=== PATIENT | female | born 1995 | race American Indian/Alaskan Native ===

== ENCOUNTER 2019-07-10 18:26 | Inpatient (IN) | payer BC, OTHER ==
--- NOTE | 2019-07-10 18:32 | History and Physical Report ---
History of Present Illness Date of examination: 07/10/19 (Sent from [facility] for IOL due to PreE) Date of admission: 07/10/19 History of present illness: EDC Confirmation: 07/22/2019 Gestational Age: 21 4/7 weeks Past History : 2 Term Births: 0 Premature Births: 0 Living Children: 0 Para: 0 Mult. Births: 0 Prev : 0 Prev. attempt? 0 Aborta: 1 Elect. Ab: 1 Spont. Ab: 0 Ectopics: 0 # 1 Delivery date: 10/2016 Delivery type: EAB Past Medical History: Endometriosis Past Surgical History: negative Past Medical History Anesthesia Complications: negative Anemia: negative Autoimmune Disorder: negative Bleeding Disorder: negative Blood Transfusions: negative Breast Disease: negative Diabetes: negative Heart Disease: negative Hypertension: negative Hepatitis/Liver Disease: negative Kidney Disease/UTI: negative Neurologic/Epilepsy/Migraines: negative Phlebitis/Varicosities: negative Psychiatric: negative Pulmonary Disease/Asthma: negative Thyroid Disease: negative Hospitalizations: negative Surgery (Non-skin therapist): negative Abnormal PAP: negative Social Hx: Single no smoking/drugs/ETOH Infection History Hx of STD: none HIV Risk Eval: low risk Hepatitis B Risk Eval: low risk Personal hx. of genital herpes: no Partner hx. of genital herpes: no Rash, Viral, or Febrile illness since last LMP? no Varicella/Chicken Pox Status: Immunized Genetic History Congenital Heart Defect: Mom: no Dad: no Bing Disease: Mom: no Dad: no Thalassemia Mom: no Dad: no Neural Tube Defect Mom: no Dad: no Down's Syndrome Mom: no Dad: no Steven-Sachs Mom: no Dad: no Sickle Cell Disease/Trait Mom: no Dad: no Hemophilia Mom: no Dad: no Muscular Dystrophy Mom: no Dad: no Cystic Fibrosis Mom: no Dad: no [place] Chorea Mom: no Dad: no Mental Retardation Mom: no Dad: no Fragile X Mom: no Dad: no Other Genetic/Chromosomal Disorder Mom: no Dad: no Child w/other defect Mom: no Dad: no Enviromental Exposures Xray Exposure: no Medication, drug, or alcohol use since LMP: no Chemical/Other Exposure: no Exposure to Cat Liter: no Hx of Parvovirus (Fifth Disease): no Active Medications (reviewed today): PNV () Current Allergies (reviewed today): No known allergies Past History - Obstetrical History Expected Date of Delivery: 07/22/19 Actual Gestation: 38 Week(s) 2 Day(s) : 2 Para: 0 Hx # Term Pregnancies: 0 Number of Pregnancies: 0 Spontaneous Abortions: 0 Induced : 1 Number of Living Children: 0 Medications and Allergies Allergies Allergy/AdvReac Type Severity Reaction Status Date / Time No Known Allergies Allergy Unverified 03/28/14 10:06 - Physical Exam Breasts: Positive: deferred Cardiovascular: Regular rate, Normal S1, Normal S2 Lungs: Positive: Clear to auscultation Abdomen: Positive: normal appearance, soft, normal bowel sounds. Negative: distention, tenderness Genitourinary (Female): Positive: normal external genitalia Vulva: both: normal Vagina: Positive: normal moisture. Negative: discharge Cervix: Negative: lesion, discharge Uterus: Positive: normal size, normal contour Adnexa: both: normal Anus/Rectum: Positive: normal perianal skin, heme negative. Negative: rectal mass, hemorrhoids Extremities: Positive: edema (minimal LE) Deep Tendon Reflex Grade: Normal +2 - Obstetrical FHR: category 1 Uterine Contraction Monitor Mode: External Cervical Dilatation: 0.5 Cervical Effacement Percentage: 80 station: -3 Uterine Contraction Pattern: Irregular Uterine Tone Measurement Phase: Resting Uterine Contraction Intensity: Mild Results Result Diagrams: 07/10/19 18:58 All other labs normal. GBS Negative Current OB Labs Blood Type: A (12/25/2018) Rh Type: positive (12/25/2018) Rh Antibody Screen: negative (12/25/2018) Hgb: 12.1 (12/25/2018) Hct: 35.3 (12/25/2018) Platelets: 199 (12/25/2018) Rubella: immune (12/25/2018) RPR: nonreactive (12/25/2018) Hep B Surface Antigen: negative (12/25/2018) HIV: negative (12/25/2018) Urine Culture: Neg (12/25/2018) 1 Hour GTT: 90 (12/25/2018) Assessment and Plan 23yo @ 38 weeks for IOL due to PreE Sent from [facility] office with their recommendation to move forward with induction. All orders in EMR GBS negative. - Patient Problems (1) Marijuana use Onset Date: ~07/10/19 Current Visit: Yes Status: Acute Plan to address problem: UDS ordered Pt denies any recent use (2) Pre-eclampsia Onset Date: ~07/10/19 Current Visit: Yes Status: Acute Qualifiers: Trimester: third trimester Qualified Code(s): O14.93 - Unspecified pre- eclampsia, third trimester Plan to address problem: BP has been in the 130/90-80 over the last 2 visits for PN care. It was 140/90 today @ [facility] IOL orders in EMR aware of admission Will start MGSO4 per protocol. Cervidil for IOL (3) Proteinuria affecting in third trimester Onset Date: ~07/10/19 Current Visit: Yes Status: Acute Plan to address problem: 24hr urine TP 529 on 07-01-19 Will closely follow urine output IOL today as per [facility] recommendation
[2019-07-10] MEDS ORDERED: ePHEDrine SULFATE 50 MG/1 ML INJ IV PRN (18:33)
[2019-07-10] MEDS ORDERED: LIDOCAINE (2%) 20 MG/1 ML VIAL 20 ML MDV INFILTRATI ONE (18:33)
[2019-07-10] MEDS ORDERED: MINERAL OIL 30 ML ORAL LIQD PO PRN (18:33)
[2019-07-10] MEDS ORDERED: TERBUTALINE 1 MG/1 ML INJ SUB-Q PRN (18:33)
[2019-07-10] MEDS ORDERED: ONDANSETRON 4 MG/2 ML INJ IV PRN (18:33)
[2019-07-10] MEDS ORDERED: MAGNESIUM SULFATE 4 GM/100 ML BAG IV ONE (18:42)
[2019-07-10] MEDS ORDERED: DINOPROSTONE 10 MG VAG SUPP VG ONE (19:00)
[2019-07-10] MEDS ORDERED: LACTATED RINGERS 1,000 ML IV SCH (19:00)
[2019-07-10] MEDS ORDERED: OXYTOCIN 20 UNIT/1000ML DRIP 20 UNITS/1,000 ML BAG IV SCH (19:00)
[2019-07-10 19:32] LABS: Hematocrit 36.4 % (30.3-42.9); Hemoglobin 12.4 gm/dl (10.1-14.3); Mean Corpuscular HGB Conc 34 % (30-34); Mean Corpuscular Volume 93 fl (79-97); Platelet Count 191 K/mm3 (140-440); Red Blood Count 3.92 M/mm3 (3.65-5.03); Red Cell Distribution Width 13.8 % (13.2-15.2)
[2019-07-10] MEDS ORDERED: ZOLPIDEM 10 MG TAB PO PRN (19:38)
[2019-07-10 19:48] LABS: Alanine Aminotransferase 8 units/L (7-56); Albumin 3.1 g/dL (3.9-5); BUN/Creatinine Ratio 15; Blood Urea Nitrogen 9 mg/dL (7-17); Calcium 8.9 mg/dL (8.4-10.2); Hemolysis Index 41
[2019-07-10 19:59] LABS: Bilirubin,Direct < 0.2 mg/dL (0-0.2)
[2019-07-10 20:00] LABS: INR 0.99 (0.87-1.13); Partial Thromboplastin Time 27.3 Sec. (24.2-36.6)
[2019-07-10] MEDS: LACTATED RINGERS 1,000 ML IV SCH (21:21)
[2019-07-10] MEDS: MAGNESIUM SULFATE 40GM/1000ML 40 GM/1,000 ML BAG IV SCH (21:35)
[2019-07-10 22:51] LABS: Amphetamine Screen,Urine PRESUMPTIVE NEGATIVE; Bacteria,Urine 1+ /HPF (Negative); Benzodiazepines Screen,Urine PRESUMPTIVE NEGATIVE; Bilirubin,Urine NEG (Negative); Blood,Urine NEG (Negative); Cocaine Screen,Urine PRESUMPTIVE NEGATIVE; Color,Urine Yellow (Yellow); Methadone Screen,Urine PRESUMPTIVE NEGATIVE; Mucus,Urine FEW /HPF; Opiate Screen,Urine PRESUMPTIVE NEGATIVE; RBC,Urine < 1.0 /HPF (0.0-6.0); Urobilinogen,Urine < 2.0 mg/dL (<2.0); WBC,Urine < 1.0 /HPF (0.0-6.0)
[2019-07-10 23:17] LABS: Cannabinoid Screen,Urine PRESUMPTIVE POSITIVE
[2019-07-11] MEDS ORDERED: ACETAMINOPHEN 325 MG TAB PO ONE ×2 (05:05→11:00)
--- NOTE | 2019-07-11 07:48 | Progress Note ---
Assessment and Plan patient sleeping, easily aroused to verbal stimuli. reports GUPTA has improved but still present 12/26. refuses additional medication for GUPTA. Output adequate, unsure of balance as no intake documented. b/p mostly normotensive, elevated b/p x1 (148/90) noted since midnight. Last mag level 4.2. reviewed plan with patient, all questions addressed. will reevaluate PRN. - Patient Problems (1) 38 weeks gestation of Current Visit: Yes Status: Acute (2) Pre-eclampsia Onset Date: ~07/10/19 Current Visit: Yes Status: Acute Qualifiers: Trimester: third trimester Qualified Code(s): O14.93 - Unspecified pre- eclampsia, third trimester Plan to address problem: Mag sulfate @ 2gm Mag levels q6hrs IOL; cervidil to be removed @ 0930, will start pitocin 30 minutes after removal. Monitor for s/s worsening pre-e strict I&O Subjective - Subjective Date of service: 07/11/19 Principal diagnosis: IUP @ 38+ weeks, IOL for pre-e Patient reports: movement normal, other (GUPTA 12/26 - declines medication), no loss of fluid, no vaginal bleeding, no contractions Objective - Vital Signs Vital Signs: Vital Signs - 12hr 07/10/19 07/10/19 07/10/19 19:45 19:50 19:53 Temperature Pulse Rate 88 104 H 100 H Respiratory Rate Blood Pressure 158/106 O2 Sat by Pulse 98 98 Oximetry 07/10/19 07/10/19 07/10/19 19:55 20:00 20:05 Temperature Pulse Rate 84 98 H 87 Respiratory Rate Blood Pressure O2 Sat by Pulse 98 99 99 Oximetry 07/10/19 07/10/19 07/10/19 20:10 20:15 20:21 Temperature Pulse Rate 86 92 H 89 Respiratory Rate Blood Pressure 133/86 O2 Sat by Pulse 98 98 99 Oximetry 07/10/19 07/10/19 07/10/19 20:26 20:31 20:36 Temperature Pulse Rate 96 H 82 91 H Respiratory Rate Blood Pressure O2 Sat by Pulse 98 99 99 Oximetry 07/10/19 07/10/19 07/10/19 20:41 20:46 20:51 Temperature Pulse Rate 86 87 86 Respiratory Rate Blood Pressure O2 Sat by Pulse 98 100 100 Oximetry 07/10/19 07/10/1907/10/19 20:56 21:01 21:06 Temperature Pulse Rate 88 94 H 92 H Respiratory Rate Blood Pressure O2 Sat by Pulse 100 99 100 Oximetry 07/10/19 07/10/19 07/10/19 21:11 21:14 21:16 Temperature Pulse Rate 91 H 83 91 H Respiratory Rate Blood Pressure 131/84 O2 Sat by Pulse 100 99 Oximetry 07/10/19 07/10/19 07/10/19 21:19 21:21 21:25 Temperature Pulse Rate 90 88 94 H Respiratory Rate Blood Pressure 139/88 128/79 O2 Sat by Pulse 100 Oximetry 07/10/19 07/10/19 07/10/19 21:26 21:29 21:31 Temperature Pulse Rate 86 101 H 78 Respiratory Rate Blood Pressure 131/84 O2 Sat by Pulse 99 100 Oximetry 07/10/19 07/10/19 07/10/19 21:34 21:36 21:41 Temperature Pulse Rate 82 88 99 H Respiratory Rate Blood Pressure 130/81 O2 Sat by Pulse 99 99 Oximetry 07/10/19 07/10/19 07/10/19 21:46 21:51 21:56 Temperature Pulse Rate 94 H 90 104 H Respiratory Rate Blood Pressure O2 Sat by Pulse 99 99 98 Oximetry 07/10/19 07/10/19 07/10/19 22:01 22:06 22:11 Temperature Pulse Rate 101 H 105 H 102 H Respiratory Rate Blood Pressure O2 Sat by Pulse 98 98 98 Oximetry 07/10/19 07/10/19 07/10/19 22:16 22:21 22:26 Temperature Pulse Rate 86 100 H 95 H Respiratory Rate Blood Pressure O2 Sat by Pulse 97 98 98 Oximetry 07/10/19 07/10/19 07/10/19 22:31 22:36 22:41 Temperature Pulse Rate 99 H 95 H 98 H Respiratory Rate Blood Pressure O2 Sat by Pulse 97 98 97 Oximetry 07/10/19 07/10/19 07/10/19 22:43 22:46 22:51 Temperature Pulse Rate 116 H 97 H 98 H Respiratory Rate Blood Pressure 134/100 O2 Sat by Pulse 98 98 Oximetry 07/10/19 07/10/19 07/10/19 22:56 23:01 23:06 Temperature Pulse Rate 104 H 94 H 103 H Respiratory Rate Blood Pressure O2 Sat by Pulse 98 98 98 Oximetry 07/10/19 07/10/19 07/10/19 23:11 23:16 23:21 Temperature Pulse Rate 97 H 89 99 H Respiratory Rate Blood Pressure O2 Sat by Pulse 98 97 98 Oximetry 07/10/19 07/10/19 07/10/19 23:26 23:31 23:36 Temperature Pulse Rate 91 H 91 H 93 H Respiratory Rate Blood Pressure O2 Sat by Pulse 98 98 98 Oximetry 07/10/19 07/10/19 07/10/19 23:37 23:41 23:46 Temperature Pulse Rate 93 H 98 H 105 H Respiratory Rate Blood Pressure 147/88 O2 Sat by Pulse 98 98 Oximetry 07/10/19 07/10/19 07/11/19 23:51 23:56 00:00 Temperature 98 F Pulse Rate 94 H 98 H Respiratory 18 Rate Blood Pressure O2 Sat by Pulse 98 98 Oximetry 07/11/19 07/11/19 07/11/19 00:01 00:06 00:11 Temperature Pulse Rate 89 96 H 96 H Respiratory Rate Blood Pressure O2 Sat by Pulse 98 98 98 Oximetry 07/11/19 07/11/19 07/11/19 00:16 00:21 00:26 Temperature Pulse Rate 96 H 85 90 Respiratory Rate Blood Pressure O2 Sat by Pulse 98 98 98 Oximetry 07/11/19 07/11/19 07/11/19 00:31 00:36 00:41 Temperature Pulse Rate 92 H 91 H 84 Respiratory Rate Blood Pressure 112/52 O2 Sat by Pulse 98 98 98 Oximetry 07/11/19 07/11/19 07/11/19 00:46 00:51 00:56 Temperature Pulse Rate 88 86 86 Respiratory Rate Blood Pressure O2 Sat by Pulse 98 98 98 Oximetry 07/11/19 07/11/19 07/11/19 01:01 01:06 01:11 Temperature Pulse Rate 85 83 74 Respiratory Rate Blood Pressure O2 Sat by Pulse 97 97 97 Oximetry 07/11/19 07/11/19 07/11/19 01:16 01:21 01:26 Temperature Pulse Rate 83 82 78 Respiratory Rate Blood Pressure O2 Sat by Pulse 96 96 97 Oximetry 07/11/19 07/11/19 07/11/19 01:31 01:36 01:41 Temperature Pulse Rate 88 75 92 H Respiratory Rate Blood Pressure 122/64 O2 Sat by Pulse 97 97 97 Oximetry 07/11/19 07/11/19 07/11/19 01:46 01:51 01:56 Temperature Pulse Rate 86 89 87 Respiratory Rate Blood Pressure O2 Sat by Pulse 99 98 96 Oximetry 07/11/19 07/11/19 07/11/19 01:58 02:01 02:06 Temperature Pulse Rate 73 85 94 H Respiratory Rate Blood Pressure O2 Sat by Pulse 92 96 98 Oximetry 07/11/19 07/11/19 07/11/19 02:11 02:16 02:21 Temperature Pulse Rate 79 83 87 Respiratory Rate Blood Pressure O2 Sat by Pulse 98 98 95 Oximetry 07/11/19 07/11/19 07/11/19 02:26 02:31 02:36 Temperature Pulse Rate 85 83 76 Respiratory Rate Blood Pressure 130/77 O2 Sat by Pulse 97 98 96 Oximetry 07/11/19 07/11/19 07/11/19 02:41 02:46 02:51 Temperature Pulse Rate 87 63 74 Respiratory Rate Blood Pressure O2 Sat by Pulse 98 98 98 Oximetry 07/11/19 07/11/19 07/11/19 02:56 03:01 03:06 Temperature Pulse Rate 69 71 65 Respiratory Rate Blood Pressure O2 Sat by Pulse 98 97 98 Oximetry 07/11/19 07/11/19 07/11/19 03:11 03:16 03:21 Temperature Pulse Rate 68 71 73 Respiratory Rate Blood Pressure O2 Sat by Pulse 97 98 97 Oximetry 07/11/19 07/11/19 07/11/19 03:26 03:31 03:36 Temperature Pulse Rate 64 80 71 Respiratory Rate Blood Pressure O2 Sat by Pulse 97 95 98 Oximetry 07/11/19 07/11/19 07/11/19 03:37 03:40 03:41 Temperature Pulse Rate 65 66 65 Respiratory Rate Blood Pressure 132/73 O2 Sat by Pulse 94 97 Oximetry 07/11/19 07/11/19 07/11/19 03:46 03:51 03:56 Temperature Pulse Rate 72 75 72 Respiratory Rate Blood Pressure O2 Sat by Pulse 98 97 97 Oximetry 07/11/19 07/11/19 07/11/19 04:00 04:01 04:06 Temperature 97.6 F Pulse Rate 72 70 Respiratory 18 Rate Blood Pressure O2 Sat by Pulse 98 98 Oximetry 07/11/19 07/11/19 07/11/19 04:11 04:16 04:21 Temperature Pulse Rate 89 90 75 Respiratory Rate Blood Pressure O2 Sat by Pulse 98 99 97 Oximetry 07/11/19 07/11/19 07/11/19 04:26 04:31 04:36 Temperature Pulse Rate 86 76 94 H Respiratory Rate Blood Pressure 148/90 O2 Sat by Pulse 99 99 99 Oximetry 07/11/19 07/11/19 07/11/19 04:41 04:46 04:51 Temperature Pulse Rate 85 101 H 90 Respiratory Rate Blood Pressure O2 Sat by Pulse 99 99 99 Oximetry 07/11/19 07/11/19 07/11/19 04:56 05:01 05:06 Temperature Pulse Rate 82 92 H 89 Respiratory Rate Blood Pressure O2 Sat by Pulse 98 98 99 Oximetry 07/11/19 07/11/19 07/11/19 05:11 05:16 05:21 Temperature Pulse Rate 86 93 H 71 Respiratory Rate Blood Pressure O2 Sat by Pulse 98 99 97 Oximetry 07/11/19 07/11/19 07/11/19 05:26 05:31 05:36 Temperature Pulse Rate 72 65 84 Respiratory Rate Blood Pressure 117/59 O2 Sat by Pulse 97 98 98 Oximetry 07/11/19 07/11/19 07/11/19 05:41 05:46 05:51 Temperature Pulse Rate 74 73 73 Respiratory Rate Blood Pressure O2 Sat by Pulse 97 98 98 Oximetry 07/11/19 07/11/19 07/11/19 05:56 06:01 06:06 Temperature Pulse Rate 74 89 74 Respiratory Rate Blood Pressure O2 Sat by Pulse 97 96 94 Oximetry 07/11/19 07/11/19 07/11/19 06:07 06:11 06:16 Temperature Pulse Rate 69 71 70 Respiratory Rate Blood Pressure O2 Sat by Pulse 93 97 98 Oximetry 07/11/19 07/11/19 07/11/19 06:21 06:26 06:31 Temperature Pulse Rate 72 76 70 Respiratory Rate Blood Pressure O2 Sat by Pulse 97 97 98 Oximetry 07/11/19 07/11/19 07/11/19 06:36 06:41 06:46 Temperature Pulse Rate 65 68 77 Respiratory Rate Blood Pressure 135/67 O2 Sat by Pulse 98 98 97 Oximetry 07/11/19 07/11/19 07/11/19 06:51 06:56 06:59 Temperature Pulse Rate 63 62 77 Respiratory Rate Blood Pressure O2 Sat by Pulse 99 98 94 Oximetry 07/11/19 07/11/19 07/11/19 07:01 07:06 07:11 Temperature Pulse Rate 65 72 65 Respiratory Rate Blood Pressure O2 Sat by Pulse 98 97 97 Oximetry 07/11/19 07/11/19 07/11/19 07:16 07:21 07:26 Temperature Pulse Rate 67 66 67 Respiratory Rate Blood Pressure O2 Sat by Pulse 97 97 97 Oximetry 07/11/19 07/11/19 07/11/19 07:31 07:36 07:41 Temperature Pulse Rate 73 96 H 78 Respiratory Rate Blood Pressure 138/82 O2 Sat by Pulse 99 99 99 Oximetry - Exam Breasts: normal Cardiovascular: Regular rate Lungs: Clear to auscultation, Normal air movement Abdomen: Present: normal appearance, soft Vulva: both: normal Uterus: Present: normal, fundal height above umbilicus FHR: auscultation normal Uterine Contraction Monitor Mode: External Uterine Contraction Pattern: Irregular Uterine Tone Measurement Phase: Contraction Uterine Contraction Intensity: Mild Extremities: normal Deep Tendon Reflex Grade: Normal +2 - Labs Labs: Abnormal Labs 07/10/19 07/11/19 18:58 00:43 Carbon Dioxide 20 L Creatinine 0.6 L Magnesium 4.20 H Albumin 3.1 L Laboratory Results - last 24 hr 07/10/19 07/10/19 07/10/19 18:58 18:58 18:58 WBC 6.4 RBC 3.92 Hgb 12.4 Hct 36.4 MCV 93 MCH 32 MCHC 34 RDW 13.8 Plt Count 191 PT 13.0 INR 0.99 APTT 27.3 Sodium 137 Potassium 4.1 Chloride 103.0 Carbon Dioxide 20 L Anion Gap 18 BUN 9 Creatinine 0.6 L Estimated GFR > 60 BUN/Creatinine Ratio 15 Glucose 86 Uric Acid Calcium 8.9 Magnesium Total Bilirubin < 0.20 Direct Bilirubin < 0.2 AST 21 ALT 8 Alkaline Phosphatase 127 Total Protein 6.4 Albumin 3.1 L Albumin/Globulin Ratio 0.9 Urine Color Urine Turbidity Urine pH Ur Specific [place] Urine Protein Urine Glucose (UA) Urine Ketones Urine Blood Urine Nitrite Urine Bilirubin Urine Urobilinogen Ur Leukocyte Esterase Urine WBC (Auto) Urine RBC (Auto) U Epithel Cells (Auto) Urine Bacteria (Auto) Urine Mucus Urine Opiates Screen Urine Methadone Screen Ur Barbiturates Screen Ur Phencyclidine Scrn Ur Amphetamines Screen U Benzodiazepines Scrn Urine Cocaine Screen U Marijuana (THC) Screen Drugs of Abuse Note Syphilis IgG Antibody Blood Type Antibody Screen 07/10/19 07/10/19 07/10/19 18:58 19:00 20:04 WBC RBC Hgb Hct MCV MCH MCHC RDW Plt Count PT INR APTT Sodium Potassium Chloride Carbon Dioxide Anion Gap BUN Creatinine Estimated GFR BUN/Creatinine Ratio Glucose Uric Acid 4.2 Calcium Magnesium Total Bilirubin Direct Bilirubin AST ALT Alkaline Phosphatase Total Protein Albumin Albumin/Globulin Ratio Urine Color Urine Turbidity Urine pH Ur Specific [place] Urine Protein Urine Glucose (UA) Urine Ketones Urine Blood Urine Nitrite Urine Bilirubin Urine Urobilinogen Ur Leukocyte Esterase Urine WBC (Auto) Urine RBC (Auto) U Epithel Cells (Auto) Urine Bacteria (Auto) Urine Mucus Urine Opiates Screen Urine Methadone Screen Ur Barbiturates Screen Ur Phencyclidine Scrn Ur Amphetamines Screen U Benzodiazepines Scrn Urine Cocaine Screen U Marijuana (THC) Screen Drugs of Abuse Note Syphilis IgG Antibody Non-reactive Blood Type A POSITIVE Antibody Screen Negative 07/10/19 07/10/19 07/11/19 21:50 21:50 00:43 WBC RBC Hgb Hct MCV MCH MCHC RDW Plt Count PT INR APTT Sodium Potassium Chloride Carbon Dioxide Anion Gap BUN Creatinine Estimated GFR BUN/Creatinine Ratio Glucose Uric Acid Calcium Magnesium 4.20 H Total Bilirubin Direct Bilirubin AST ALT Alkaline Phosphatase Total Protein Albumin Albumin/Globulin Ratio Urine Color Yellow Urine Turbidity Clear Urine pH 7.0 Ur Specific [place] 1.020 Urine Protein 30 mg/dl Urine Glucose (UA) Neg Urine Ketones Neg Urine Blood Neg Urine Nitrite Neg Urine Bilirubin Neg Urine Urobilinogen < 2.0 Ur Leukocyte Esterase Neg Urine WBC (Auto) < 1.0 Urine RBC (Auto) < 1.0 U Epithel Cells (Auto) 1.0 Urine Bacteria (Auto) 1+ Urine Mucus Few Urine Opiates Screen Presumptive negative Urine Methadone Screen Presumptive negative Ur Barbiturates Screen Presumptive negative Ur Phencyclidine Scrn Presumptive negative Ur Amphetamines Screen Presumptive negative U Benzodiazepines Scrn Presumptive negative Urine Cocaine Screen Presumptive negative U Marijuana (THC) Screen Presumptive positive Drugs of Abuse Note Disclamer Syphilis IgG Antibody Blood Type Antibody Screen
[2019-07-11] MEDS: LACTATED RINGERS 1,000 ML IV SCH (10:09)
[2019-07-11] MEDS ORDERED: ACETAMINOPHEN 500 MG TAB PO NR (11:00)
[2019-07-11] MEDS: OXYTOCIN DRIP 30 UNITS/500 ML BAG IV SCH (11:05)
--- NOTE | 2019-07-11 17:05 | Progress Note ---
Assessment and Plan patient denies feeling painful ctx, she is requesting a break from the pitocin to eat dinner. SVE unchanged. Will d/c pitocin and allow PM care and regular dinner. Discussed using second dose of cervidil tonight to help ripen cervix. Pt denies GUPTA, visual changes or epigastric pain. All questions addressed, verbalized understanding. - Patient Problems (1) 38 weeks gestation of Current Visit: Yes Status: Acute (2) Pre-eclampsia Onset Date: ~07/10/19 Current Visit: Yes Status: Acute Qualifiers: Trimester: third trimester Qualified Code(s): O14.93 - Unspecified pre- eclampsia, third trimester Plan to address problem: Mag sulfate @ 2gm Mag levels q6hrs - last level 5.8 IOL; pitocin not successful in starting labor, will d/c allow PM meal and place cervidil tonight. Monitor for s/s worsening pre-e strict I&O - adequate Subjective - Subjective Date of service: 07/11/19 Principal diagnosis: IUP @ 38+3 weeks, IOL for pre-e Patient reports: movement normal, other (GUPTA resolved), no loss of fluid, no vaginal bleeding, no contractions Objective - Vital Signs Vital Signs: Vital Signs - 12hr 07/11/19 07/11/19 07/11/19 05:06 05:11 05:16 Temperature Pulse Rate 89 86 93 H Respiratory Rate Blood Pressure O2 Sat by Pulse 99 98 99 Oximetry 07/11/19 07/11/19 07/11/19 05:21 05:26 05:31 Temperature Pulse Rate 71 72 65 Respiratory Rate Blood Pressure O2 Sat by Pulse 97 97 98 Oximetry 07/11/19 07/11/19 07/11/19 05:36 05:41 05:46 Temperature Pulse Rate 84 74 73 Respiratory Rate Blood Pressure 117/59 O2 Sat by Pulse 98 97 98 Oximetry 07/11/19 07/11/19 07/11/19 05:51 05:56 06:01 Temperature Pulse Rate 73 74 89 Respiratory Rate Blood Pressure O2 Sat by Pulse 98 97 96 Oximetry 07/11/19 07/11/19 07/11/19 06:06 06:07 06:11 Temperature Pulse Rate 74 69 71 Respiratory Rate Blood Pressure O2 Sat by Pulse 94 93 97 Oximetry 07/11/19 07/11/19 07/11/19 06:16 06:21 06:26 Temperature Pulse Rate 70 72 76 Respiratory Rate Blood Pressure O2 Sat by Pulse 98 97 97 Oximetry 07/11/19 07/11/19 07/11/19 06:31 06:36 06:41 Temperature Pulse Rate 70 65 68 Respiratory Rate Blood Pressure 135/67 O2 Sat by Pulse 98 98 98 Oximetry 07/11/19 07/11/19 07/11/19 06:46 06:51 06:56 Temperature Pulse Rate 77 63 62 Respiratory Rate Blood Pressure O2 Sat by Pulse 97 99 98 Oximetry 07/11/19 07/11/19 07/11/19 06:59 07:01 07:06 Temperature Pulse Rate 77 65 72 Respiratory Rate Blood Pressure O2 Sat by Pulse 94 98 97 Oximetry 07/11/19 07/11/19 07/11/19 07:11 07:16 07:21 Temperature Pulse Rate 65 67 66 Respiratory Rate Blood Pressure O2 Sat by Pulse 97 97 97 Oximetry 07/11/19 07/11/19 07/11/19 07:26 07:31 07:36 Temperature Pulse Rate 67 73 96 H Respiratory Rate Blood Pressure 138/82 O2 Sat by Pulse 97 99 99 Oximetry 07/11/19 07/11/19 07/11/19 07:41 07:46 07:50 Temperature 98.2 F Pulse Rate 78 83 Respiratory 18 Rate Blood Pressure O2 Sat by Pulse 99 98 Oximetry 07/11/19 07/11/19 07/11/19 07:51 07:56 08:01 Temperature Pulse Rate 69 71 85 Respiratory Rate Blood Pressure O2 Sat by Pulse 98 99 98 Oximetry 07/11/19 07/11/19 07/11/19 08:05 08:06 08:11 Temperature Pulse Rate 75 82 76 Respiratory Rate Blood Pressure O2 Sat by Pulse 94 96 93 Oximetry 07/11/19 07/11/19 07/11/19 08:15 08:16 08:21 Temperature Pulse Rate 108 H 109 H 97 H Respiratory Rate Blood Pressure O2 Sat by Pulse 94 94 94 Oximetry 07/11/19 07/11/19 07/11/19 08:26 08:28 08:31 Temperature Pulse Rate 101 H 98 H 94 H Respiratory Rate Blood Pressure O2 Sat by Pulse 94 94 92 Oximetry 07/11/19 07/11/19 07/11/19 08:36 08:41 08:46 Temperature Pulse Rate 97 H 98 H 98 H Respiratory Rate Blood Pressure 140/90 O2 Sat by Pulse 91 90 93 Oximetry 07/11/19 07/11/19 07/11/19 08:47 08:51 08:56 Temperature Pulse Rate 89 102 H 89 Respiratory Rate Blood Pressure O2 Sat by Pulse 94 83 L 92 Oximetry 07/11/19 07/11/19 07/11/19 08:59 09:01 09:06 Temperature Pulse Rate 98 H 91 H 90 Respiratory Rate Blood Pressure O2 Sat by Pulse 94 95 92 Oximetry 07/11/19 07/11/19 07/11/19 09:11 09:16 09:21 Temperature Pulse Rate 98 H 93 H 100 H Respiratory Rate Blood Pressure O2 Sat by Pulse 93 92 92 Oximetry 07/11/19 07/11/19 07/11/19 09:26 09:30 09:31 Temperature Pulse Rate 121 H 102 H Respiratory 18 Rate Blood Pressure O2 Sat by Pulse 84 89 Oximetry 07/11/19 07/11/19 07/11/19 09:34 09:36 09:37 Temperature Pulse Rate 84 82 76 Respiratory Rate Blood Pressure 136/85 O2 Sat by Pulse 93 99 Oximetry 07/11/19 07/11/19 07/11/19 09:41 09:42 09:46 Temperature Pulse Rate 94 H 87 92 H Respiratory Rate Blood Pressure O2 Sat by Pulse 95 90 93 Oximetry 07/11/19 07/11/19 07/11/19 09:51 09:56 10:01 Temperature Pulse Rate 92 H 96 H 87 Respiratory Rate Blood Pressure O2 Sat by Pulse 90 81 L 87 Oximetry 07/11/19 07/11/19 07/11/19 10:06 10:11 10:16 Temperature Pulse Rate 83 80 76 Respiratory Rate Blood Pressure O2 Sat by Pulse 88 88 91 Oximetry 07/11/19 07/11/19 07/11/19 10:21 10:26 10:27 Temperature Pulse Rate 78 81 110 H Respiratory Rate Blood Pressure O2 Sat by Pulse 88 87 94 Oximetry 07/11/19 07/11/19 07/11/19 10:30 10:31 10:36 Temperature Pulse Rate 67 70 Respiratory 17 Rate Blood Pressure 135/84 O2 Sat by Pulse 86 87 Oximetry 07/11/19 07/11/19 07/11/19 10:41 10:46 10:51 Temperature Pulse Rate 66 85 77 Respiratory Rate Blood Pressure O2 Sat by Pulse 86 94 94 Oximetry 07/11/19 07/11/19 07/11/19 10:52 10:56 11:01 Temperature Pulse Rate 84 72 87 Respiratory Rate Blood Pressure O2 Sat by Pulse 94 92 91 Oximetry 07/11/19 07/11/19 07/11/19 11:06 11:08 11:11 Temperature Pulse Rate 68 79 Respiratory Rate Blood Pressure O2 Sat by Pulse 90 86 82 L Oximetry 07/11/19 07/11/19 07/11/19 11:13 11:16 11:19 Temperature Pulse Rate 80 88 Respiratory Rate Blood Pressure O2 Sat by Pulse 81 L 92 77 L Oximetry 07/11/19 07/11/19 07/11/19 11:21 11:24 11:26 Temperature Pulse Rate 91 H 84 85 Respiratory Rate Blood Pressure O2 Sat by Pulse 98 90 92 Oximetry 07/11/19 07/11/19 07/11/19 11:31 11:36 11:42 Temperature Pulse Rate 78 151 H 65 Respiratory Rate Blood Pressure 149/94 O2 Sat by Pulse 89 92 88 Oximetry 07/11/19 07/11/19 07/11/19 11:47 11:52 11:57 Temperature Pulse Rate 53 L Respiratory Rate Blood Pressure O2 Sat by Pulse 79 L 81 L 77 L Oximetry 07/11/19 07/11/19 07/11/19 12:00 12:03 12:08 Temperature 98.0 F Pulse Rate 128 H 82 Respiratory 18 Rate Blood Pressure 161/95 O2 Sat by Pulse 98 81 L Oximetry 07/11/19 07/11/19 07/11/19 12:09 12:10 12:11 Temperature Pulse Rate 82 65 Respiratory Rate Blood Pressure 145/81 O2 Sat by Pulse 85 95 Oximetry 07/11/19 07/11/19 07/11/19 12:14 12:16 12:28 Temperature Pulse Rate 77 191 H Respiratory Rate Blood Pressure O2 Sat by Pulse 44 L 91 87 Oximetry 07/11/19 07/11/19 07/11/19 12:33 12:34 12:37 Temperature Pulse Rate 85 Respiratory Rate Blood Pressure 147/99 O2 Sat by Pulse 80 L 89 Oximetry 07/11/19 07/11/19 07/11/19 12:38 12:44 13:36 Temperature Pulse Rate 60 100 H Respiratory Rate Blood Pressure 162/104 O2 Sat by Pulse 94 92 Oximetry 07/11/19 07/11/19 07/11/19 13:49 14:36 15:38 Temperature Pulse Rate 88 82 64 Respiratory Rate Blood Pressure 149/75 144/91 138/76 O2 Sat by Pulse Oximetry 07/11/19 07/11/19 07/11/19 15:42 16:00 16:36 Temperature 97.7 F Pulse Rate 73 Respiratory 18 18 Rate Blood Pressure 120/68 O2 Sat by Pulse Oximetry - Exam Breasts: normal Cardiovascular: Regular rate Lungs: Clear to auscultation, Normal air movement Abdomen: Present: normal appearance, soft Vulva: both: normal Uterus: Present: normal, fundal height above umbilicus FHR: auscultation normal, category 1 Uterine Contraction Monitor Mode: External Cervical Dilatation: 1 Cervical Effacement Percentage: 60 station: -2 Uterine Contraction Frequency (min): 2-5 Uterine Contraction Duration: 60 Uterine Contraction Pattern: Regular Uterine Tone Measurement Phase: Contraction Uterine Contraction Intensity: Mild Extremities: normal Deep Tendon Reflex Grade: Normal +2 - Labs Labs: Abnormal Labs 07/10/19 07/11/19 07/11/19 18:58 00:43 08:48 Carbon Dioxide 20 L Creatinine 0.6 L Magnesium 4.20 H 5.30 H Albumin 3.1 L 07/11/19 15:21 Carbon Dioxide Creatinine Magnesium 5.80 H Albumin Laboratory Results - last 24 hr 07/10/19 07/10/19 07/10/19 18:58 18:58 18:58 WBC 6.4 RBC 3.92 Hgb 12.4 Hct 36.4 MCV 93 MCH 32 MCHC 34 RDW 13.8 Plt Count 191 PT 13.0 INR 0.99 APTT 27.3 Sodium 137 Potassium 4.1 Chloride 103.0 Carbon Dioxide 20 L Anion Gap 18 BUN 9 Creatinine 0.6 L Estimated GFR > 60 BUN/Creatinine Ratio 15 Glucose 86 Uric Acid Calcium 8.9 Magnesium Total Bilirubin < 0.20 Direct Bilirubin < 0.2 AST 21 ALT 8 Alkaline Phosphatase 127 Total Protein 6.4 Albumin 3.1 L Albumin/Globulin Ratio 0.9 Urine Color Urine Turbidity Urine pH Ur Specific Apison Urine Protein Urine Glucose (UA) Urine Ketones Urine Blood Urine Nitrite Urine Bilirubin Urine Urobilinogen Ur Leukocyte Esterase Urine WBC (Auto) Urine RBC (Auto) U Epithel Cells (Auto) Urine Bacteria (Auto) Urine Mucus Urine Opiates Screen Urine Methadone Screen Ur Barbiturates Screen Ur Phencyclidine Scrn Ur Amphetamines Screen U Benzodiazepines Scrn Urine Cocaine Screen U Marijuana (THC) Screen Drugs of Abuse Note Syphilis IgG Antibody Blood Type Antibody Screen 07/10/19 07/10/19 07/10/19 18:58 19:00 20:04 WBC RBC Hgb Hct MCV MCH MCHC RDW Plt Count PT INR APTT Sodium Potassium Chloride Carbon Dioxide Anion Gap BUN Creatinine Estimated GFR BUN/Creatinine Ratio Glucose Uric Acid 4.2 Calcium Magnesium Total Bilirubin Direct Bilirubin AST ALT Alkaline Phosphatase Total Protein Albumin Albumin/Globulin Ratio Urine Color Urine Turbidity Urine pH Ur Specific Apison Urine Protein Urine Glucose (UA) Urine Ketones Urine Blood Urine Nitrite Urine Bilirubin Urine Urobilinogen Ur Leukocyte Esterase Urine WBC (Auto) Urine RBC (Auto) U Epithel Cells (Auto) Urine Bacteria (Auto) Urine Mucus Urine Opiates Screen Urine Methadone Screen Ur Barbiturates Screen Ur Phencyclidine Scrn Ur Amphetamines Screen U Benzodiazepines Scrn Urine Cocaine Screen U Marijuana (THC) Screen Drugs of Abuse Note Syphilis IgG Antibody Non-reactive Blood Type A POSITIVE Antibody Screen Negative 07/10/19 07/10/19 07/11/19 21:50 21:50 00:43 WBC RBC Hgb Hct MCV MCH MCHC RDW Plt Count PT INR APTT Sodium Potassium Chloride Carbon Dioxide Anion Gap BUN Creatinine Estimated GFR BUN/Creatinine Ratio Glucose Uric Acid Calcium Magnesium 4.20 H Total Bilirubin Direct Bilirubin AST ALT Alkaline Phosphatase Total Protein Albumin Albumin/Globulin Ratio Urine Color Yellow Urine Turbidity Clear Urine pH 7.0 Ur Specific Apison 1.020 Urine Protein 30 mg/dl Urine Glucose (UA) Neg Urine Ketones Neg Urine Blood Neg Urine Nitrite Neg Urine Bilirubin Neg Urine Urobilinogen < 2.0 Ur Leukocyte Esterase Neg Urine WBC (Auto) < 1.0 Urine RBC (Auto) < 1.0 U Epithel Cells (Auto) 1.0 Urine Bacteria (Auto) 1+ Urine Mucus Few Urine Opiates Screen Presumptive negative Urine Methadone Screen Presumptive negative Ur Barbiturates Screen Presumptive negative Ur Phencyclidine Scrn Presumptive negative Ur Amphetamines Screen Presumptive negative U Benzodiazepines Scrn Presumptive negative Urine Cocaine Screen Presumptive negative U Marijuana (THC) Screen Presumptive positive Drugs of Abuse Note Disclamer Syphilis IgG Antibody Blood Type Antibody Screen 07/11/19 07/11/19 08:48 15:21 WBC RBC Hgb Hct MCV MCH MCHC RDW Plt Count PT INR APTT Sodium Potassium Chloride Carbon Dioxide Anion Gap BUN Creatinine Estimated GFR BUN/Creatinine Ratio Glucose Uric Acid Calcium Magnesium 5.30 H 5.80 H Total Bilirubin Direct Bilirubin AST ALT Alkaline Phosphatase Total Protein Albumin Albumin/Globulin Ratio Urine Color Urine Turbidity Urine pH Ur Specific Apison Urine Protein Urine Glucose (UA) Urine Ketones Urine Blood Urine Nitrite Urine Bilirubin Urine Urobilinogen Ur Leukocyte Esterase Urine WBC (Auto) Urine RBC (Auto) U Epithel Cells (Auto) Urine Bacteria (Auto) Urine Mucus Urine Opiates Screen Urine Methadone Screen Ur Barbiturates Screen Ur Phencyclidine Scrn Ur Amphetamines Screen U Benzodiazepines Scrn Urine Cocaine Screen U Marijuana (THC) Screen Drugs of Abuse Note Syphilis IgG Antibody Blood Type Antibody Screen
[2019-07-11] MEDS ORDERED: ZOLPIDEM 10 MG TAB PO PRN (17:10)
[2019-07-11] MEDS: MAGNESIUM SULFATE 40GM/1000ML 40 GM/1,000 ML BAG IV SCH (17:43)
[2019-07-11] MEDS ORDERED: DINOPROSTONE 10 MG VAG SUPP VG ONE (18:00)
--- NOTE | 2019-07-12 09:34 | Progress Note ---
Assessment and Plan - Patient Problems (1) 38 weeks gestation of Current Visit: Yes Status: Acute (2) Marijuana use Onset Date: ~07/10/19 Current Visit: Yes Status: Acute (3) Pre-eclampsia Onset Date: ~07/10/19 Current Visit: Yes Status: Acute Qualifiers: Trimester: third trimester Qualified Code(s): O14.93 - Unspecified pre- eclampsia, third trimester Plan to address problem: -cont serial IOL -cont magnesium sulfate at this time -plan of care d/w pt and questions were addressed and answered Subjective - Subjective Date of service: 07/12/19 Principal diagnosis: IUP @ 38+4 weeks, IOL for pre-e Interval history: DAY #2 for IOL. Pt has not c/o. No headaches or blurry vision at this time. Plan of care and serial IOL d/w pt and questions were addressed and answered. Patient reports: movement normal, other (GUPTA resolved), no loss of fluid, no vaginal bleeding, no contractions Objective - Vital Signs Vital Signs: Vital Signs - 12hr 07/11/19 07/11/19 07/11/19 21:50 22:37 23:36 Pulse Rate 90 74 72 Blood Pressure 127/73 131/84 119/57 O2 Sat by Pulse Oximetry 07/12/19 07/12/19 07/12/19 00:36 01:36 03:06 Pulse Rate 73 78 91 H Blood Pressure 144/84 145/68 O2 Sat by Pulse 95 Oximetry 07/12/19 07/12/19 07/12/19 03:07 03:11 03:12 Pulse Rate 89 80 81 Blood Pressure 139/95 O2 Sat by Pulse 95 94 Oximetry 07/12/19 07/12/19 07/12/19 03:16 03:21 03:26 Pulse Rate 75 71 73 Blood Pressure O2 Sat by Pulse 96 97 99 Oximetry 07/12/19 07/12/19 07/12/19 03:31 03:36 03:41 Pulse Rate 72 68 65 Blood Pressure 140/88 O2 Sat by Pulse 96 94 94 Oximetry 07/12/19 07/12/19 07/12/19 03:42 03:46 03:51 Pulse Rate 68 65 77 Blood Pressure O2 Sat by Pulse 94 94 94 Oximetry 07/12/19 07/12/19 07/12/19 03:55 03:56 04:00 Pulse Rate 54 L 86 73 Blood Pressure O2 Sat by Pulse 94 96 93 Oximetry 07/12/19 07/12/19 07/12/19 04:01 04:06 04:09 Pulse Rate 82 65 61 Blood Pressure O2 Sat by Pulse 96 94 94 Oximetry 07/12/19 07/12/19 07/12/19 04:11 04:16 04:18 Pulse Rate 61 71 66 Blood Pressure O2 Sat by Pulse 93 95 94 Oximetry 07/12/19 07/12/19 07/12/19 04:21 04:26 04:31 Pulse Rate 64 65 65 Blood Pressure O2 Sat by Pulse 94 93 90 Oximetry 07/12/19 07/12/19 07/12/19 04:34 04:36 04:41 Pulse Rate 65 79 66 Blood Pressure 148/109 O2 Sat by Pulse 94 94 95 Oximetry 07/12/19 07/12/19 07/12/19 04:42 04:46 04:48 Pulse Rate 63 65 73 Blood Pressure O2 Sat by Pulse 94 92 94 Oximetry 07/12/19 07/12/19 07/12/19 04:51 04:53 04:56 Pulse Rate 68 65 72 Blood Pressure O2 Sat by Pulse 93 94 90 Oximetry 07/12/19 07/12/19 07/12/19 04:59 05:01 05:04 Pulse Rate 82 68 74 Blood Pressure O2 Sat by Pulse 89 95 86 Oximetry 07/12/19 07/12/19 07/12/19 05:06 05:09 05:11 Pulse Rate 61 67 54 L Blood Pressure O2 Sat by Pulse 91 92 95 Oximetry 07/12/19 07/12/19 07/12/19 05:15 05:16 05:21 Pulse Rate 74 78 61 Blood Pressure O2 Sat by Pulse 93 94 93 Oximetry 07/12/19 07/12/19 07/12/19 05:24 05:26 05:30 Pulse Rate 71 64 66 Blood Pressure O2 Sat by Pulse 94 94 94 Oximetry 07/12/19 07/12/19 07/12/19 05:31 05:35 05:36 Pulse Rate 64 62 68 Blood Pressure 139/76 O2 Sat by Pulse 94 94 95 Oximetry 07/12/19 07/12/19 07/12/19 05:41 05:42 05:46 Pulse Rate 62 65 71 Blood Pressure O2 Sat by Pulse 92 94 95 Oximetry 07/12/19 07/12/19 07/12/19 05:48 05:51 05:53 Pulse Rate 64 67 66 Blood Pressure O2 Sat by Pulse 94 94 94 Oximetry 07/12/19 07/12/19 07/12/19 05:56 06:00 06:01 Pulse Rate 67 70 66 Blood Pressure O2 Sat by Pulse 93 94 93 Oximetry 07/12/19 07/12/19 07/12/19 06:05 06:06 06:11 Pulse Rate 67 71 64 Blood Pressure O2 Sat by Pulse 94 95 93 Oximetry 07/12/19 07/12/19 07/12/19 06:16 06:17 06:21 Pulse Rate 73 64 89 Blood Pressure O2 Sat by Pulse 93 93 85 Oximetry 07/12/19 07/12/19 07/12/19 06:23 06:26 06:28 Pulse Rate 65 72 66 Blood Pressure O2 Sat by Pulse 93 93 91 Oximetry 07/12/19 07/12/19 07/12/19 06:31 06:33 06:36 Pulse Rate 63 84 69 Blood Pressure O2 Sat by Pulse 96 94 96 Oximetry 07/12/19 07/12/19 07/12/19 06:37 06:41 06:42 Pulse Rate 64 82 64 Blood Pressure 126/57 O2 Sat by Pulse 96 94 Oximetry 07/12/19 07/12/19 07/12/19 06:46 06:48 06:51 Pulse Rate 69 67 62 Blood Pressure O2 Sat by Pulse 95 94 95 Oximetry 07/12/19 07/12/19 07/12/19 06:54 06:56 07:00 Pulse Rate 76 71 68 Blood Pressure O2 Sat by Pulse 94 91 91 Oximetry 07/12/19 07/12/19 07/12/19 07:01 07:06 07:11 Pulse Rate 61 67 71 Blood Pressure O2 Sat by Pulse 94 95 94 Oximetry 07/12/19 07/12/19 07/12/19 07:16 07:17 07:21 Pulse Rate 74 74 84 Blood Pressure O2 Sat by Pulse 95 93 94 Oximetry 07/12/19 07/12/19 07/12/19 07:25 07:26 07:30 Pulse Rate 78 73 66 Blood Pressure O2 Sat by Pulse 94 93 94 Oximetry 07/12/19 07/12/19 07/12/19 07:31 07:32 07:33 Pulse Rate 69 77 80 Blood Pressure O2 Sat by Pulse 94 95 94 Oximetry 07/12/19 07/12/19 07/12/19 07:37 07:39 07:42 Pulse Rate 98 H 86 84 Blood Pressure 140/67 O2 Sat by Pulse 96 94 95 Oximetry 07/12/19 07/12/19 07/12/19 07:44 07:47 07:50 Pulse Rate 88 73 70 Blood Pressure O2 Sat by Pulse 94 95 94 Oximetry 07/12/19 07/12/19 07/12/19 07:52 07:55 07:57 Pulse Rate 76 68 67 Blood Pressure O2 Sat by Pulse 95 94 95 Oximetry 07/12/19 07/12/19 07/12/19 08:01 08:02 08:06 Pulse Rate 85 68 71 Blood Pressure O2 Sat by Pulse 92 92 94 Oximetry 07/12/19 07/12/19 07/12/19 08:07 08:11 08:12 Pulse Rate 77 79 79 Blood Pressure 131/74 O2 Sat by Pulse 94 94 93 Oximetry 07/12/19 07/12/19 07/12/19 08:17 08:22 08:23 Pulse Rate 94 H 60 69 Blood Pressure O2 Sat by Pulse 96 97 94 Oximetry 07/12/19 07/12/19 07/12/19 08:27 08:32 08:37 Pulse Rate 74 69 72 Blood Pressure O2 Sat by Pulse 97 97 96 Oximetry 07/12/19 07/12/19 07/12/19 08:38 08:41 08:42 Pulse Rate 71 66 65 Blood Pressure 139/88 O2 Sat by Pulse 94 96 Oximetry 07/12/19 07/12/19 07/12/19 08:47 08:52 08:54 Pulse Rate 64 75 72 Blood Pressure O2 Sat by Pulse 97 97 90 Oximetry 07/12/19 07/12/19 07/12/19 08:57 08:59 09:02 Pulse Rate 67 68 66 Blood Pressure O2 Sat by Pulse 95 94 95 Oximetry 07/12/19 07/12/19 07/12/19 09:05 09:07 09:11 Pulse Rate 66 80 70 Blood Pressure 141/77 O2 Sat by Pulse 94 96 93 Oximetry 10/25/19 10/25/19 10/25/19 09:12 09:17 09:22 Pulse Rate 78 66 80 Blood Pressure O2 Sat by Pulse 95 95 94 Oximetry 07/12/19 07/12/19 07/12/19 09:25 09:27 09:31 Pulse Rate 82 53 L 65 Blood Pressure O2 Sat by Pulse 90 93 93 Oximetry - Exam Cardiovascular: Normal S1, Normal S2 Lungs: Normal air movement Abdomen: Present: normal appearance, soft. Absent: distention, tenderness, guarding FHR: category 1 Uterine Contraction Pattern: Absent Uterine Tone Measurement Phase: Resting - Labs Labs: Abnormal Labs 07/10/19 07/11/19 07/11/19 18:58 00:43 08:48 Carbon Dioxide 20 L Creatinine 0.6 L Magnesium 4.20 H 5.30 H Albumin 3.1 L 07/11/19 07/11/19 07/12/19 15:21 20:36 04:03 Carbon Dioxide Creatinine Magnesium 5.80 H 5.70 H 5.50 H Albumin Laboratory Results - last 24 hr 07/11/19 07/11/19 07/12/19 15:21 20:36 04:03 Magnesium 5.80 H 5.70 H 5.50 H
[2019-07-12] MEDS: fentaNYL 100 MCG/2 ML INJ IV PRN ×2 (12:08→20:25)
[2019-07-12] MEDS: OXYTOCIN DRIP 30 UNITS/500 ML BAG IV SCH (12:11)
[2019-07-12] MEDS: MAGNESIUM SULFATE 40GM/1000ML 40 GM/1,000 ML BAG IV SCH (12:15)
--- NOTE | 2019-07-12 19:39 | Progress Note ---
Assessment and Plan - Patient Problems (1) 38 weeks gestation of Current Visit: Yes Status: Acute (2) Marijuana use Onset Date: ~07/10/19 Current Visit: Yes Status: Acute (3) Pre-eclampsia Onset Date: ~07/10/19 Current Visit: Yes Status: Acute Qualifiers: Trimester: third trimester Qualified Code(s): O14.93 - Unspecified pre- eclampsia, third trimester Plan to address problem: -cont serial IOL -cont magnesium sulfate at this time -plan of care d/w pt and questions were addressed and answered -making some cervical change at this time. Subjective - Subjective Date of service: 07/12/19 Principal diagnosis: IUP @ 38+4 weeks, IOL for pre-e Interval history: DAY #2 for IOL. Pt has not c/o. No headaches or blurry vision at this time. Pt now feeling the contractions more than previous days of induction. Pt has no new c/o at this time. BP is elevated but not in the severe range. Patient reports: movement normal, other (GUPTA resolved), no loss of fluid, no vaginal bleeding, no contractions Objective - Vital Signs Vital Signs: Vital Signs - 12hr 07/12/19 07/12/19 07/12/19 07:33 07:37 07:39 Pulse Rate 80 98 H 86 Blood Pressure O2 Sat by Pulse 94 96 94 Oximetry 07/12/19 07/12/19 07/12/19 07:42 07:44 07:47 Pulse Rate 84 88 73 Blood Pressure 140/67 O2 Sat by Pulse 95 94 95 Oximetry 07/12/19 07/12/19 07/12/19 07:50 07:52 07:55 Pulse Rate 70 76 68 Blood Pressure O2 Sat by Pulse 94 95 94 Oximetry 07/12/19 07/12/19 07/12/19 07:57 08:01 08:02 Pulse Rate 67 85 68 Blood Pressure O2 Sat by Pulse 95 92 92 Oximetry 07/12/19 07/12/19 07/12/19 08:06 08:07 08:11 Pulse Rate 71 77 79 Blood Pressure 131/74 O2 Sat by Pulse 94 94 94 Oximetry 07/12/19 07/12/19 07/12/19 08:12 08:17 08:22 Pulse Rate 79 94 H 60 Blood Pressure O2 Sat by Pulse 93 96 97 Oximetry 07/12/19 07/12/19 07/12/19 08:23 08:27 08:32 Pulse Rate 69 74 69 Blood Pressure O2 Sat by Pulse 94 97 97 Oximetry 07/12/19 07/12/19 07/12/19 08:37 08:38 08:41 Pulse Rate 72 71 66 Blood Pressure 139/88 O2 Sat by Pulse 96 94 Oximetry 07/12/19 07/12/19 07/12/19 08:42 08:47 08:52 Pulse Rate 65 64 75 Blood Pressure O2 Sat by Pulse 96 97 97 Oximetry 07/12/19 07/12/19 07/12/19 08:54 08:57 08:59 Pulse Rate 72 67 68 Blood Pressure O2 Sat by Pulse 90 95 94 Oximetry 07/12/19 07/12/19 07/12/19 09:02 09:05 09:07 Pulse Rate 66 66 80 Blood Pressure O2 Sat by Pulse 95 94 96 Oximetry 07/12/19 07/12/19 07/12/19 09:11 09:12 09:17 Pulse Rate 70 78 66 Blood Pressure 141/77 O2 Sat by Pulse 93 95 95 Oximetry 07/12/19 07/12/19 07/12/19 09:22 09:25 09:27 Pulse Rate 80 82 53 L Blood Pressure O2 Sat by Pulse 94 90 93 Oximetry 07/12/19 07/12/19 07/12/19 09:31 09:32 09:37 Pulse Rate 65 91 H 74 Blood Pressure O2 Sat by Pulse 93 92 94 Oximetry 07/12/19 07/12/19 07/12/19 09:41 09:42 09:43 Pulse Rate 89 66 66 Blood Pressure 133/85 O2 Sat by Pulse 95 94 Oximetry 07/12/19 07/12/19 07/12/19 09:47 09:48 09:52 Pulse Rate 72 69 68 Blood Pressure O2 Sat by Pulse 95 94 94 Oximetry 07/12/19 07/12/19 07/12/19 09:53 09:57 09:58 Pulse Rate 63 69 72 Blood Pressure O2 Sat by Pulse 93 96 94 Oximetry 07/12/19 07/12/19 07/12/19 10:02 10:05 10:07 Pulse Rate 74 71 72 Blood Pressure O2 Sat by Pulse 90 93 96 Oximetry 07/12/19 07/12/19 07/12/19 10:11 10:12 10:13 Pulse Rate 81 69 69 Blood Pressure 152/98 O2 Sat by Pulse 93 94 Oximetry 07/12/19 07/12/19 07/12/19 10:16 10:17 10:21 Pulse Rate 70 73 68 Blood Pressure O2 Sat by Pulse 94 95 91 Oximetry 07/12/19 07/12/19 07/12/19 10:22 10:26 10:27 Pulse Rate 87 80 74 Blood Pressure O2 Sat by Pulse 94 94 94 Oximetry 07/12/19 07/12/19 07/12/19 10:31 10:32 10:37 Pulse Rate 84 83 86 Blood Pressure O2 Sat by Pulse 94 94 95 Oximetry 07/12/19 07/12/19 07/12/19 10:38 10:42 10:43 Pulse Rate 84 87 85 Blood Pressure 158/104 O2 Sat by Pulse 94 97 Oximetry 07/12/19 07/12/19 07/12/19 10:44 10:47 10:52 Pulse Rate 85 88 94 H Blood Pressure 143/98 O2 Sat by Pulse 94 94 97 Oximetry 07/12/19 07/12/19 07/12/19 10:56 10:57 11:02 Pulse Rate 99 H 94 H 104 H Blood Pressure O2 Sat by Pulse 94 95 96 Oximetry 07/12/19 07/12/19 07/12/19 11:07 11:12 11:17 Pulse Rate 100 H 89 83 Blood Pressure 162/98 O2 Sat by Pulse 98 96 97 Oximetry 07/12/19 07/12/19 07/12/19 11:22 11:27 11:32 Pulse Rate 99 H 98 H 99 H Blood Pressure O2 Sat by Pulse 96 97 97 Oximetry 07/12/19 07/12/19 07/12/19 11:35 11:37 11:41 Pulse Rate 99 H 93 H 100 H Blood Pressure 132/91 O2 Sat by Pulse 94 97 Oximetry 07/12/19 07/12/19 07/12/19 11:42 11:47 11:52 Pulse Rate 97 H 72 80 Blood Pressure O2 Sat by Pulse 98 98 98 Oximetry 07/12/19 07/12/19 07/12/19 11:57 12:02 12:07 Pulse Rate 86 88 80 Blood Pressure O2 Sat by Pulse 95 97 98 Oximetry 07/12/19 07/12/19 07/12/19 12:11 12:12 12:14 Pulse Rate 78 89 95 H Blood Pressure 127/75 O2 Sat by Pulse 97 94 Oximetry 07/12/19 07/12/19 07/12/19 12:17 12:22 12:23 Pulse Rate 96 H 103 H 109 H Blood Pressure O2 Sat by Pulse 96 95 94 Oximetry 07/12/19 07/12/19 07/12/19 12:27 12:29 12:32 Pulse Rate 82 84 79 Blood Pressure O2 Sat by Pulse 96 94 94 Oximetry 07/12/19 07/12/19 07/12/19 12:35 12:37 12:40 Pulse Rate 89 89 87 Blood Pressure O2 Sat by Pulse 94 96 94 Oximetry 07/12/19 07/12/19 07/12/19 12:42 12:47 12:52 Pulse Rate 83 74 82 Blood Pressure 119/59 O2 Sat by Pulse 95 94 95 Oximetry 07/12/19 07/12/19 07/12/19 12:56 12:57 13:02 Pulse Rate 77 72 91 H Blood Pressure O2 Sat by Pulse 94 95 95 Oximetry 07/12/19 07/12/19 07/12/19 13:07 13:08 13:12 Pulse Rate 63 65 66 Blood Pressure 116/67 O2 Sat by Pulse 95 94 95 Oximetry 07/12/19 07/12/19 07/12/19 13:17 13:22 13:27 Pulse Rate 64 64 61 Blood Pressure O2 Sat by Pulse 95 96 96 Oximetry 07/12/19 07/12/19 07/12/19 13:32 13:37 13:42 Pulse Rate 65 66 69 Blood Pressure 123/64 O2 Sat by Pulse 95 95 95 Oximetry 07/12/19 07/12/19 07/12/19 13:44 13:47 13:52 Pulse Rate 106 H 66 66 Blood Pressure O2 Sat by Pulse 87 95 94 Oximetry 07/12/19 07/12/19 07/12/19 13:57 14:02 14:07 Pulse Rate 56 L 62 69 Blood Pressure O2 Sat by Pulse 95 95 94 Oximetry 07/12/19 07/12/19 07/12/19 14:11 14:12 14:17 Pulse Rate 62 70 77 Blood Pressure 139/82 O2 Sat by Pulse 94 99 Oximetry 07/12/19 07/12/19 07/12/19 14:22 14:27 14:32 Pulse Rate 76 82 79 Blood Pressure O2 Sat by Pulse 98 98 99 Oximetry 07/12/19 07/12/19 07/12/19 14:37 14:42 14:47 Pulse Rate 84 90 77 Blood Pressure 137/66 O2 Sat by Pulse 97 98 98 Oximetry 07/12/19 07/12/19 07/12/19 14:52 14:57 15:02 Pulse Rate 83 82 73 Blood Pressure O2 Sat by Pulse 97 97 97 Oximetry 07/12/19 07/12/19 07/12/19 15:07 15:12 15:17 Pulse Rate 80 76 79 Blood Pressure 132/81 O2 Sat by Pulse 96 96 95 Oximetry 07/12/19 07/12/19 07/12/19 15:22 15:27 15:32 Pulse Rate 79 81 83 Blood Pressure O2 Sat by Pulse 96 97 97 Oximetry 07/12/19 07/12/19 07/12/19 15:37 15:41 15:42 Pulse Rate 78 83 73 Blood Pressure 137/94 O2 Sat by Pulse 97 95 Oximetry 07/12/19 07/12/19 07/12/19 15:47 15:52 15:57 Pulse Rate 84 83 90 Blood Pressure O2 Sat by Pulse 95 95 97 Oximetry 07/12/19 07/12/19 07/12/19 16:02 16:07 16:11 Pulse Rate 79 79 78 Blood Pressure 137/95 O2 Sat by Pulse 98 99 Oximetry 07/12/19 07/12/19 07/12/19 16:12 16:17 16:22 Pulse Rate 80 87 72 Blood Pressure O2 Sat by Pulse 98 98 98 Oximetry 07/12/19 07/12/19 07/12/19 16:27 16:32 16:37 Pulse Rate 77 86 83 Blood Pressure O2 Sat by Pulse 98 99 100 Oximetry 07/12/19 07/12/19 07/12/19 16:41 16:42 16:47 Pulse Rate 75 74 94 H Blood Pressure 139/83 O2 Sat by Pulse 98 99 Oximetry 07/12/19 07/12/19 07/12/19 16:52 16:57 17:02 Pulse Rate 84 83 83 Blood Pressure O2 Sat by Pulse 98 100 99 Oximetry 10/25/19 10/25/19 10/25/19 17:07 17:11 17:12 Pulse Rate 76 81 78 Blood Pressure 122/68 O2 Sat by Pulse 98 98 Oximetry 07/12/19 07/12/19 07/12/19 17:17 17:22 17:27 Pulse Rate 86 83 99 H Blood Pressure O2 Sat by Pulse 96 96 98 Oximetry 07/12/19 07/12/19 07/12/19 17:32 17:37 17:41 Pulse Rate 92 H 82 85 Blood Pressure 126/79 O2 Sat by Pulse 98 98 Oximetry 07/12/19 07/12/19 07/12/19 17:42 17:47 17:52 Pulse Rate 82 76 73 Blood Pressure O2 Sat by Pulse 98 98 96 Oximetry 07/12/19 07/12/19 07/12/19 17:57 18:02 18:07 Pulse Rate 82 83 72 Blood Pressure O2 Sat by Pulse 98 98 98 Oximetry 07/12/19 07/12/19 07/12/19 18:11 18:12 18:17 Pulse Rate 81 82 79 Blood Pressure 144/92 O2 Sat by Pulse 98 98 Oximetry 07/12/19 07/12/19 07/12/19 18:22 18:27 18:32 Pulse Rate 81 75 70 Blood Pressure O2 Sat by Pulse 99 99 98 Oximetry 07/12/19 07/12/19 07/12/19 18:37 18:42 18:47 Pulse Rate 76 76 77 Blood Pressure O2 Sat by Pulse 100 98 100 Oximetry 07/12/19 07/12/19 07/12/19 18:52 18:57 19:02 Pulse Rate 75 75 71 Blood Pressure O2 Sat by Pulse 99 97 98 Oximetry 07/12/19 07/12/19 07/12/19 19:07 19:12 19:17 Pulse Rate 82 64 68 Blood Pressure 141/92 O2 Sat by Pulse 99 98 98 Oximetry 07/12/19 07/12/19 19:22 19:27 Pulse Rate 61 75 Blood Pressure O2 Sat by Pulse 100 98 Oximetry - Exam FHR: category 1 Cervical Dilatation: 1.5 Cervical Effacement Percentage: 85 station: -1 Uterine Contraction Frequency (min): irregular Uterine Contraction Pattern: Regular Uterine Tone Measurement Phase: Resting Uterine Contraction Intensity: Moderate Extremities: normal Deep Tendon Reflex Grade: Normal +2 - Labs Labs: Abnormal Labs 07/10/19 07/11/19 07/11/19 18:58 00:43 08:48 Carbon Dioxide 20 L Creatinine 0.6 L Magnesium 4.20 H 5.30 H Albumin 3.1 L 07/11/19 07/11/19 07/12/19 15:21 20:36 04:03 Carbon Dioxide Creatinine Magnesium 5.80 H 5.70 H 5.50 H Albumin 07/12/19 17:32 Carbon Dioxide Creatinine Magnesium 5.90 H Albumin Laboratory Results - last 24 hr 07/11/19 07/12/19 07/12/19 20:36 04:03 17:32 Magnesium 5.70 H 5.50 H 5.90 H
[2019-07-12] MEDS: LACTATED RINGERS 1,000 ML IV SCH (19:44)
--- NOTE | 2019-07-13 00:49 | Progress Note ---
Assessment and Plan - Patient Problems (1) 38 weeks gestation of Current Visit: Yes Status: Acute (2) Marijuana use Onset Date: ~07/10/19 Current Visit: Yes Status: Acute (3) Pre-eclampsia Onset Date: ~07/10/19 Current Visit: Yes Status: Acute Qualifiers: Trimester: third trimester Qualified Code(s): O14.93 - Unspecified pre- eclampsia, third trimester Plan to address problem: -labor progressing -will d/c pitocin and do epidural at this time -restart pitocin in 1-2 hours after placement of epidural -AROM and will place internal monitors with placement of epidural. Subjective - Subjective Date of service: 07/13/19 Principal diagnosis: IUP @ 38+4 weeks, IOL for pre-e Interval history: Pt c/o contraction pain. Cx is 3-4/100/-1. Some bloody show noted. Will bolus for epidural at this time and pt desires to have IV meds while the bolus for the epidural is going. Will hold pitocin at this time until epidural is placed. Patient reports: movement normal, other (GUPTA resolved), no loss of fluid, no vaginal bleeding, no contractions Objective - Vital Signs Vital Signs: Vital Signs - 12hr 07/12/19 07/12/19 07/12/19 12:47 12:52 12:56 Temperature Pulse Rate 74 82 77 Respiratory Rate Blood Pressure O2 Sat by Pulse 94 95 94 Oximetry 07/12/19 07/12/19 07/12/19 12:57 13:02 13:07 Temperature Pulse Rate 72 91 H 63 Respiratory Rate Blood Pressure O2 Sat by Pulse 95 95 95 Oximetry 07/12/19 07/12/19 07/12/19 13:08 13:12 13:17 Temperature Pulse Rate 65 66 64 Respiratory Rate Blood Pressure 116/67 O2 Sat by Pulse 94 95 95 Oximetry 07/12/19 07/12/19 07/12/19 13:22 13:27 13:32 Temperature Pulse Rate 64 61 65 Respiratory Rate Blood Pressure O2 Sat by Pulse 96 96 95 Oximetry 07/12/19 07/12/19 07/12/19 13:37 13:42 13:44 Temperature Pulse Rate 66 69 106 H Respiratory Rate Blood Pressure 123/64 O2 Sat by Pulse 95 95 87 Oximetry 07/12/19 07/12/19 07/12/19 13:47 13:52 13:57 Temperature Pulse Rate 66 66 56 L Respiratory Rate Blood Pressure O2 Sat by Pulse 95 94 95 Oximetry 07/12/19 07/12/19 07/12/19 14:00 14:02 14:07 Temperature 98.2 F Pulse Rate 62 69 Respiratory Rate Blood Pressure O2 Sat by Pulse 95 94 Oximetry 07/12/19 07/12/19 07/12/19 14:11 14:12 14:17 Temperature Pulse Rate 62 70 77 Respiratory Rate Blood Pressure 139/82 O2 Sat by Pulse 94 99 Oximetry 07/12/19 07/12/19 07/12/19 14:22 14:27 14:32 Temperature Pulse Rate 76 82 79 Respiratory Rate Blood Pressure O2 Sat by Pulse 98 98 99 Oximetry 07/12/19 07/12/19 07/12/19 14:37 14:42 14:47 Temperature Pulse Rate 84 90 77 Respiratory Rate Blood Pressure 137/66 O2 Sat by Pulse 97 98 98 Oximetry 07/12/19 07/12/19 07/12/19 14:52 14:57 15:02 Temperature Pulse Rate 83 82 73 Respiratory Rate Blood Pressure O2 Sat by Pulse 97 97 97 Oximetry 07/12/19 07/12/19 07/12/19 15:07 15:12 15:17 Temperature Pulse Rate 80 76 79 Respiratory Rate Blood Pressure 132/81 O2 Sat by Pulse 96 96 95 Oximetry 07/12/19 07/12/19 07/12/19 15:22 15:27 15:32 Temperature Pulse Rate 79 81 83 Respiratory Rate Blood Pressure O2 Sat by Pulse 96 97 97 Oximetry 07/12/19 07/12/19 07/12/19 15:37 15:41 15:42 Temperature Pulse Rate 78 83 73 Respiratory Rate Blood Pressure 137/94 O2 Sat by Pulse 97 95 Oximetry 07/12/19 07/12/19 07/12/19 15:47 15:52 15:57 Temperature Pulse Rate 84 83 90 Respiratory Rate Blood Pressure O2 Sat by Pulse 95 95 97 Oximetry 07/12/19 07/12/19 07/12/19 16:02 16:07 16:11 Temperature Pulse Rate 79 79 78 Respiratory Rate Blood Pressure 137/95 O2 Sat by Pulse 98 99 Oximetry 07/12/19 07/12/19 07/12/19 16:12 16:17 16:22 Temperature Pulse Rate 80 87 72 Respiratory Rate Blood Pressure O2 Sat by Pulse 98 98 98 Oximetry 07/12/19 07/12/19 07/12/19 16:27 16:32 16:37 Temperature Pulse Rate 77 86 83 Respiratory Rate Blood Pressure O2 Sat by Pulse 98 99 100 Oximetry 07/12/19 07/12/19 07/12/19 16:41 16:42 16:47 Temperature Pulse Rate 75 74 94 H Respiratory Rate Blood Pressure 139/83 O2 Sat by Pulse 98 99 Oximetry 07/12/19 07/12/19 07/12/19 16:52 16:57 17:00 Temperature 98.2 F Pulse Rate 84 83 Respiratory Rate Blood Pressure O2 Sat by Pulse 98 100 Oximetry 07/12/19 07/12/19 07/12/19 17:02 17:07 17:11 Temperature Pulse Rate 83 76 81 Respiratory Rate Blood Pressure 122/68 O2 Sat by Pulse 99 98 Oximetry 07/12/19 07/12/19 07/12/19 17:12 17:17 17:22 Temperature Pulse Rate 78 86 83 Respiratory Rate Blood Pressure O2 Sat by Pulse 98 96 96 Oximetry 07/12/19 07/12/19 07/12/19 17:27 17:32 17:37 Temperature Pulse Rate 99 H 92 H 82 Respiratory Rate Blood Pressure O2 Sat by Pulse 98 98 98 Oximetry 07/12/19 07/12/19 07/12/19 17:41 17:42 17:47 Temperature Pulse Rate 85 82 76 Respiratory Rate Blood Pressure 126/79 O2 Sat by Pulse 98 98 Oximetry 07/12/19 07/12/19 07/12/19 17:52 17:57 18:02 Temperature Pulse Rate 73 82 83 Respiratory Rate Blood Pressure O2 Sat by Pulse 96 98 98 Oximetry 07/12/19 07/12/19 07/12/19 18:07 18:11 18:12 Temperature Pulse Rate 72 81 82 Respiratory Rate Blood Pressure 144/92 O2 Sat by Pulse 98 98 Oximetry 07/12/19 07/12/19 07/12/19 18:17 18:22 18:27 Temperature Pulse Rate 79 81 75 Respiratory Rate Blood Pressure O2 Sat by Pulse 98 99 99 Oximetry 07/12/19 07/12/19 07/12/19 18:32 18:37 18:42 Temperature Pulse Rate 70 76 76 Respiratory Rate Blood Pressure O2 Sat by Pulse 98 100 98 Oximetry 07/12/19 07/12/19 07/12/19 18:47 18:52 18:57 Temperature Pulse Rate 77 75 75 Respiratory Rate Blood Pressure O2 Sat by Pulse 100 99 97 Oximetry 07/12/19 07/12/19 07/12/19 19:02 19:07 19:12 Temperature Pulse Rate 71 82 64 Respiratory Rate Blood Pressure 141/92 O2 Sat by Pulse 98 99 98 Oximetry 07/12/19 07/12/19 07/12/19 19:17 19:20 19:22 Temperature 98.0 F Pulse Rate 68 61 Respiratory 14 Rate Blood Pressure O2 Sat by Pulse 98 100 Oximetry 07/12/19 07/12/19 07/12/19 19:27 19:32 19:37 Temperature Pulse Rate 75 73 63 Respiratory Rate Blood Pressure O2 Sat by Pulse 98 98 100 Oximetry 07/12/19 07/12/19 07/12/19 19:41 19:42 19:51 Temperature Pulse Rate 75 75 85 Respiratory Rate Blood Pressure 146/87 O2 Sat by Pulse 98 99 Oximetry 07/12/19 07/12/19 07/12/19 19:56 20:01 20:05 Temperature Pulse Rate 82 71 69 Respiratory Rate Blood Pressure 149/83 O2 Sat by Pulse 99 99 Oximetry 07/12/19 07/12/19 07/12/19 20:06 20:11 20:16 Temperature Pulse Rate 72 71 69 Respiratory Rate Blood Pressure 136/88 O2 Sat by Pulse 99 100 98 Oximetry 07/12/19 07/12/19 07/12/19 20:21 20:26 20:31 Temperature Pulse Rate 73 75 72 Respiratory Rate Blood Pressure O2 Sat by Pulse 97 96 96 Oximetry 07/12/19 07/12/19 07/12/19 20:36 20:41 20:42 Temperature Pulse Rate 78 66 69 Respiratory Rate Blood Pressure 121/68 O2 Sat by Pulse 97 98 Oximetry 07/12/19 07/12/19 07/12/19 20:46 20:51 20:56 Temperature Pulse Rate 70 65 61 Respiratory Rate Blood Pressure O2 Sat by Pulse 97 99 97 Oximetry 07/12/19 07/12/19 07/12/19 21:01 21:06 21:11 Temperature Pulse Rate 61 61 63 Respiratory Rate Blood Pressure O2 Sat by Pulse 96 96 96 Oximetry 07/12/19 07/12/19 07/12/19 21:12 21:16 21:21 Temperature Pulse Rate 58 L 70 61 Respiratory Rate Blood Pressure 120/70 O2 Sat by Pulse 93 97 Oximetry 07/12/19 07/12/19 07/12/19 21:26 21:31 21:36 Temperature Pulse Rate 65 69 63 Respiratory Rate Blood Pressure O2 Sat by Pulse 98 98 99 Oximetry 07/12/19 07/12/19 07/12/19 21:41 21:46 21:51 Temperature Pulse Rate 64 60 54 L Respiratory Rate Blood Pressure 122/62 O2 Sat by Pulse 100 98 98 Oximetry 07/12/19 07/12/19 07/12/19 21:56 22:01 22:06 Temperature Pulse Rate 62 65 58 L Respiratory Rate Blood Pressure O2 Sat by Pulse 98 100 98 Oximetry 07/12/19 07/12/19 07/12/19 22:11 22:12 22:16 Temperature Pulse Rate 60 61 70 Respiratory Rate Blood Pressure 136/81 O2 Sat by Pulse 97 100 Oximetry 07/12/19 07/12/19 07/12/19 22:21 22:26 22:31 Temperature Pulse Rate 61 68 74 Respiratory Rate Blood Pressure O2 Sat by Pulse 98 97 98 Oximetry 07/12/19 07/12/19 07/12/19 22:36 22:41 22:42 Temperature Pulse Rate 66 65 67 Respiratory Rate Blood Pressure 127/75 O2 Sat by Pulse 99 98 Oximetry 07/12/19 07/12/19 07/12/19 22:46 22:51 22:56 Temperature Pulse Rate 70 70 71 Respiratory Rate Blood Pressure O2 Sat by Pulse 96 95 98 Oximetry 07/12/19 07/12/19 07/12/19 23:01 23:06 23:11 Temperature Pulse Rate 65 69 71 Respiratory Rate Blood Pressure O2 Sat by Pulse 96 100 96 Oximetry 07/12/19 07/12/19 07/12/19 23:13 23:16 23:21 Temperature Pulse Rate 72 79 70 Respiratory Rate Blood Pressure 116/58 O2 Sat by Pulse 100 96 Oximetry 07/12/19 07/12/19 07/12/19 23:26 23:31 23:36 Temperature Pulse Rate 63 68 64 Respiratory Rate Blood Pressure O2 Sat by Pulse 97 96 97 Oximetry 07/12/19 07/12/19 07/12/19 23:41 23:42 23:46 Temperature Pulse Rate 61 76 60 Respiratory Rate Blood Pressure 140/84 O2 Sat by Pulse 98 96 Oximetry 07/12/19 07/12/19 07/13/19 23:51 23:56 00:01 Temperature Pulse Rate 52 L 80 74 Respiratory Rate Blood Pressure O2 Sat by Pulse 96 96 98 Oximetry 07/13/19 07/13/19 07/13/19 00:06 00:11 00:12 Temperature Pulse Rate 72 80 71 Respiratory Rate Blood Pressure 142/78 O2 Sat by Pulse 98 98 Oximetry 07/13/19 07/13/19 07/13/19 00:16 00:21 00:26 Temperature Pulse Rate 68 68 70 Respiratory Rate Blood Pressure O2 Sat by Pulse 100 99 95 Oximetry 07/13/19 07/13/19 07/13/19 00:37 00:38 00:42 Temperature Pulse Rate 55 L 66 Respiratory Rate Blood Pressure 113/59 O2 Sat by Pulse 82 L 91 64 L Oximetry - Exam FHR: category 1 Cervical Dilatation: 3.5 Cervical Effacement Percentage: 100 station: -1 Uterine Contraction Pattern: Irregular Uterine Tone Measurement Phase: Resting Uterine Contraction Intensity: Moderate Extremities: normal - Labs Labs: Abnormal Labs 07/10/19 07/11/19 07/11/19 18:58 00:43 08:48 Carbon Dioxide 20 L Creatinine 0.6 L Magnesium 4.20 H 5.30 H Albumin 3.1 L 07/11/19 07/11/19 07/12/19 15:21 20:36 04:03 Carbon Dioxide Creatinine Magnesium 5.80 H 5.70 H 5.50 H Albumin 07/12/19 17:32 Carbon Dioxide Creatinine Magnesium 5.90 H Albumin Laboratory Results - last 24 hr 07/12/19 07/12/19 04:03 17:32 Magnesium 5.50 H 5.90 H
--- NOTE | 2019-07-13 00:51 | Progress Note ---
Assessment and Plan - Patient Problems (1) 38 weeks gestation of Current Visit: Yes Status: Acute (2) Marijuana use Onset Date: ~07/10/19 Current Visit: Yes Status: Acute (3) Pre-eclampsia Onset Date: ~07/10/19 Current Visit: Yes Status: Acute Qualifiers: Trimester: third trimester Qualified Code(s): O14.93 - Unspecified pre- eclampsia, third trimester Subjective - Subjective Principal diagnosis: IUP @ 38+4 weeks, IOL for pre-e Interval history: Pt c/o contraction pain. Cx is 3-4/100/-1. Some bloody show noted. Will bolus for epidural at this time and pt desires to have IV meds while the bolus for the epidural is going. Will hold pitocin at this time until epidural is placed. Patient reports: movement normal, other (GUPTA resolved), no loss of fluid, no vaginal bleeding, no contractions Objective - Vital Signs Vital Signs: Vital Signs - 12hr 07/12/19 07/12/19 07/12/19 12:52 12:56 12:57 Temperature Pulse Rate 82 77 72 Respiratory Rate Blood Pressure O2 Sat by Pulse 95 94 95 Oximetry 07/12/19 07/12/19 07/12/19 13:02 13:07 13:08 Temperature Pulse Rate 91 H 63 65 Respiratory Rate Blood Pressure O2 Sat by Pulse 95 95 94 Oximetry 07/12/19 07/12/19 07/12/19 13:12 13:17 13:22 Temperature Pulse Rate 66 64 64 Respiratory Rate Blood Pressure 116/67 O2 Sat by Pulse 95 95 96 Oximetry 07/12/19 07/12/19 07/12/19 13:27 13:32 13:37 Temperature Pulse Rate 61 65 66 Respiratory Rate Blood Pressure O2 Sat by Pulse 96 95 95 Oximetry 07/12/19 07/12/19 07/12/19 13:42 13:44 13:47 Temperature Pulse Rate 69 106 H 66 Respiratory Rate Blood Pressure 123/64 O2 Sat by Pulse 95 87 95 Oximetry 07/12/19 07/12/19 07/12/19 13:52 13:57 14:00 Temperature 98.2 F Pulse Rate 66 56 L Respiratory Rate Blood Pressure O2 Sat by Pulse 94 95 Oximetry 07/12/19 07/12/19 07/12/19 14:02 14:07 14:11 Temperature Pulse Rate 62 69 62 Respiratory Rate Blood Pressure 139/82 O2 Sat by Pulse 95 94 Oximetry 07/12/19 07/12/19 07/12/19 14:12 14:17 14:22 Temperature Pulse Rate 70 77 76 Respiratory Rate Blood Pressure O2 Sat by Pulse 94 99 98 Oximetry 07/12/19 07/12/19 07/12/19 14:27 14:32 14:37 Temperature Pulse Rate 82 79 84 Respiratory Rate Blood Pressure O2 Sat by Pulse 98 99 97 Oximetry 07/12/19 07/12/19 07/12/19 14:42 14:47 14:52 Temperature Pulse Rate 90 77 83 Respiratory Rate Blood Pressure 137/66 O2 Sat by Pulse 98 98 97 Oximetry 07/12/19 07/12/19 07/12/19 14:57 15:02 15:07 Temperature Pulse Rate 82 73 80 Respiratory Rate Blood Pressure O2 Sat by Pulse 97 97 96 Oximetry 07/12/19 07/12/19 07/12/19 15:12 15:17 15:22 Temperature Pulse Rate 76 79 79 Respiratory Rate Blood Pressure 132/81 O2 Sat by Pulse 96 95 96 Oximetry 07/12/19 07/12/19 07/12/19 15:27 15:32 15:37 Temperature Pulse Rate 81 83 78 Respiratory Rate Blood Pressure O2 Sat by Pulse 97 97 97 Oximetry 07/12/19 07/12/19 07/12/19 15:41 15:42 15:47 Temperature Pulse Rate 83 73 84 Respiratory Rate Blood Pressure 137/94 O2 Sat by Pulse 95 95 Oximetry 07/12/19 07/12/19 07/12/19 15:52 15:57 16:02 Temperature Pulse Rate 83 90 79 Respiratory Rate Blood Pressure O2 Sat by Pulse 95 97 98 Oximetry 07/12/19 07/12/19 07/12/19 16:07 16:11 16:12 Temperature Pulse Rate 79 78 80 Respiratory Rate Blood Pressure 137/95 O2 Sat by Pulse 99 98 Oximetry 07/12/19 07/12/19 07/12/19 16:17 16:22 16:27 Temperature Pulse Rate 87 72 77 Respiratory Rate Blood Pressure O2 Sat by Pulse 98 98 98 Oximetry 07/12/19 07/12/19 07/12/19 16:32 16:37 16:41 Temperature Pulse Rate 86 83 75 Respiratory Rate Blood Pressure 139/83 O2 Sat by Pulse 99 100 Oximetry 07/12/19 07/12/19 07/12/19 16:42 16:47 16:52 Temperature Pulse Rate 74 94 H 84 Respiratory Rate Blood Pressure O2 Sat by Pulse 98 99 98 Oximetry 07/12/19 07/12/19 07/12/19 16:57 17:00 17:02 Temperature 98.2 F Pulse Rate 83 83 Respiratory Rate Blood Pressure O2 Sat by Pulse 100 99 Oximetry 07/12/19 07/12/19 07/12/19 17:07 17:11 17:12 Temperature Pulse Rate 76 81 78 Respiratory Rate Blood Pressure 122/68 O2 Sat by Pulse 98 98 Oximetry 07/12/19 07/12/19 07/12/19 17:17 17:22 17:27 Temperature Pulse Rate 86 83 99 H Respiratory Rate Blood Pressure O2 Sat by Pulse 96 96 98 Oximetry 07/12/19 07/12/19 07/12/19 17:32 17:37 17:41 Temperature Pulse Rate 92 H 82 85 Respiratory Rate Blood Pressure 126/79 O2 Sat by Pulse 98 98 Oximetry 07/12/19 07/12/19 07/12/19 17:42 17:47 17:52 Temperature Pulse Rate 82 76 73 Respiratory Rate Blood Pressure O2 Sat by Pulse 98 98 96 Oximetry 07/12/19 07/12/19 07/12/19 17:57 18:02 18:07 Temperature Pulse Rate 82 83 72 Respiratory Rate Blood Pressure O2 Sat by Pulse 98 98 98 Oximetry 07/12/19 07/12/19 07/12/19 18:11 18:12 18:17 Temperature Pulse Rate 81 82 79 Respiratory Rate Blood Pressure 144/92 O2 Sat by Pulse 98 98 Oximetry 07/12/19 07/12/19 07/12/19 18:22 18:27 18:32 Temperature Pulse Rate 81 75 70 Respiratory Rate Blood Pressure O2 Sat by Pulse 99 99 98 Oximetry 07/12/19 07/12/19 07/12/19 18:37 18:42 18:47 Temperature Pulse Rate 76 76 77 Respiratory Rate Blood Pressure O2 Sat by Pulse 100 98 100 Oximetry 07/12/19 07/12/19 07/12/19 18:52 18:57 19:02 Temperature Pulse Rate 75 75 71 Respiratory Rate Blood Pressure O2 Sat by Pulse 99 97 98 Oximetry 07/12/19 07/12/19 07/12/19 19:07 19:12 19:17 Temperature Pulse Rate 82 64 68 Respiratory Rate Blood Pressure 141/92 O2 Sat by Pulse 99 98 98 Oximetry 07/12/19 07/12/19 07/12/19 19:20 19:22 19:27 Temperature 98.0 F Pulse Rate 61 75 Respiratory 14 Rate Blood Pressure O2 Sat by Pulse 100 98 Oximetry 07/12/19 07/12/19 07/12/19 19:32 19:37 19:41 Temperature Pulse Rate 73 63 75 Respiratory Rate Blood Pressure 146/87 O2 Sat by Pulse 98 100 Oximetry 07/12/19 07/12/19 07/12/19 19:42 19:51 19:56 Temperature Pulse Rate 75 85 82 Respiratory Rate Blood Pressure O2 Sat by Pulse 98 99 99 Oximetry 07/12/19 07/12/19 07/12/19 20:01 20:05 20:06 Temperature Pulse Rate 71 69 72 Respiratory Rate Blood Pressure 149/83 O2 Sat by Pulse 99 99 Oximetry 07/12/19 07/12/19 07/12/19 20:11 20:16 20:21 Temperature Pulse Rate 71 69 73 Respiratory Rate Blood Pressure 136/88 O2 Sat by Pulse 100 98 97 Oximetry 07/12/19 07/12/19 07/12/19 20:26 20:31 20:36 Temperature Pulse Rate 75 72 78 Respiratory Rate Blood Pressure O2 Sat by Pulse 96 96 97 Oximetry 07/12/19 07/12/19 07/12/19 20:41 20:42 20:46 Temperature Pulse Rate 66 69 70 Respiratory Rate Blood Pressure 121/68 O2 Sat by Pulse 98 97 Oximetry 07/12/19 07/12/19 07/12/19 20:51 20:56 21:01 Temperature Pulse Rate 65 61 61 Respiratory Rate Blood Pressure O2 Sat by Pulse 99 97 96 Oximetry 07/12/19 07/12/19 07/12/19 21:06 21:11 21:12 Temperature Pulse Rate 61 63 58 L Respiratory Rate Blood Pressure 120/70 O2 Sat by Pulse 96 96 Oximetry 07/12/19 07/12/19 07/12/19 21:16 21:21 21:26 Temperature Pulse Rate 70 61 65 Respiratory Rate Blood Pressure O2 Sat by Pulse 93 97 98 Oximetry 07/12/19 07/12/19 07/12/19 21:31 21:36 21:41 Temperature Pulse Rate 69 63 64 Respiratory Rate Blood Pressure 122/62 O2 Sat by Pulse 98 99 100 Oximetry 07/12/19 07/12/19 07/12/19 21:46 21:51 21:56 Temperature Pulse Rate 60 54 L 62 Respiratory Rate Blood Pressure O2 Sat by Pulse 98 98 98 Oximetry 07/12/19 07/12/19 07/12/19 22:01 22:06 22:11 Temperature Pulse Rate 65 58 L 60 Respiratory Rate Blood Pressure O2 Sat by Pulse 100 98 97 Oximetry 07/12/19 07/12/19 07/12/19 22:12 22:16 22:21 Temperature Pulse Rate 61 70 61 Respiratory Rate Blood Pressure 136/81 O2 Sat by Pulse 100 98 Oximetry 07/12/19 07/12/19 07/12/19 22:26 22:31 22:36 Temperature Pulse Rate 68 74 66 Respiratory Rate Blood Pressure O2 Sat by Pulse 97 98 99 Oximetry 07/12/19 07/12/19 07/12/19 22:41 22:42 22:46 Temperature Pulse Rate 65 67 70 Respiratory Rate Blood Pressure 127/75 O2 Sat by Pulse 98 96 Oximetry 07/12/19 07/12/19 07/12/19 22:51 22:56 23:01 Temperature Pulse Rate 70 71 65 Respiratory Rate Blood Pressure O2 Sat by Pulse 95 98 96 Oximetry 07/12/19 07/12/19 07/12/19 23:06 23:11 23:13 Temperature Pulse Rate 69 71 72 Respiratory Rate Blood Pressure 116/58 O2 Sat by Pulse 100 96 Oximetry 07/12/19 07/12/19 07/12/19 23:16 23:21 23:26 Temperature Pulse Rate 79 70 63 Respiratory Rate Blood Pressure O2 Sat by Pulse 100 96 97 Oximetry 07/12/19 07/12/19 07/12/19 23:31 23:36 23:41 Temperature Pulse Rate 68 64 61 Respiratory Rate Blood Pressure O2 Sat by Pulse 96 97 98 Oximetry 07/12/19 07/12/19 07/12/19 23:42 23:46 23:51 Temperature Pulse Rate 76 60 52 L Respiratory Rate Blood Pressure 140/84 O2 Sat by Pulse 96 96 Oximetry 07/12/19 07/13/19 07/13/19 23:56 00:01 00:06 Temperature Pulse Rate 80 74 72 Respiratory Rate Blood Pressure O2 Sat by Pulse 96 98 98 Oximetry 07/13/19 07/13/19 07/13/19 00:11 00:12 00:16 Temperature Pulse Rate 80 71 68 Respiratory Rate Blood Pressure 142/78 O2 Sat by Pulse 98 100 Oximetry 07/13/19 07/13/19 07/13/19 00:21 00:26 00:37 Temperature Pulse Rate 68 70 Respiratory Rate Blood Pressure O2 Sat by Pulse 99 95 82 L Oximetry 07/13/19 07/13/19 07/13/19 00:38 00:42 00:44 Temperature Pulse Rate 55 L 66 95 H Respiratory Rate Blood Pressure 113/59 O2 Sat by Pulse 91 64 L 89 Oximetry 07/13/19 00:49 Temperature Pulse Rate 64 Respiratory Rate Blood Pressure O2 Sat by Pulse 89 Oximetry - Exam Cervical Dilatation: 3.5 Cervical Effacement Percentage: 100 station: -1 - Labs Labs: Abnormal Labs 07/10/19 07/11/19 07/11/19 18:58 00:43 08:48 Carbon Dioxide 20 L Creatinine 0.6 L Magnesium 4.20 H 5.30 H Albumin 3.1 L 07/11/19 07/11/19 07/12/19 15:21 20:36 04:03 Carbon Dioxide Creatinine Magnesium 5.80 H 5.70 H 5.50 H Albumin 07/12/19 17:32 Carbon Dioxide Creatinine Magnesium 5.90 H Albumin Laboratory Results - last 24 hr 07/12/19 07/12/19 04:03 17:32 Magnesium 5.50 H 5.90 H
[2019-07-13] MEDS: fentaNYL 100 MCG/2 ML INJ IV PRN (00:53)
[2019-07-13] MEDS ORDERED: ePHEDrine SULFATE 50 MG/1 ML INJ IV PRN (03:02)
[2019-07-13] MEDS ORDERED: NALOXONE 2 MG/2 ML INJ IV PRN (03:02)
--- NOTE | 2019-07-13 03:16 | Anesthesia Consultation ---
Anesthesia Consult and Med Hx Date of service: 07/13/19 - Airway Anesthetic Teeth Evaluation: Good ROM Head & Neck: Adequate Mental/Hyoid Distance: Adequate Mallampati Class: Class II Intubation Access Assessment: Good - Pulmonary Exam CTA: Yes - Cardiac Exam Cardiac Exam: RRR - Pre-Operative Health Status ASA Pre-Surgery Classification: ASA2, Emergency Proposed Anesthetic Plan: Epidural - Pulmonary Hx Smoking: No Hx Asthma: No Hx Respiratory Symptoms: No SOB: No COPD: No Hx Pneumonia: No Hx Sleep Apnea: (snores: never tested: possibly present) - Cardiovascular System Hx Hypertension: Yes (pre-eclmapsia) Hx Coronary Artery Disease: No Hx Heart Attack/AMI: No Hx Angina: No Hx Percutaneous Transluminal Coronary Angioplasty (PTCA): No Hx Cardia Arrhythmia: No Hx Pacemaker: No Hx Internal Defibrillator: No Hx Valvular Heart Disease: No Hx Heart Murmur: No Hx Peripheral Vascular Disease: No - Central Nervous System Hx Neuromuscular Disorder: No Hx Seizures: No CVA: No Hx Back Pain: Yes (e pinched nerves) Hx Psychiatric Problems: No - Gastrointestinal Hx Ulcer: No Hx Gastroesophageal Reflux Disease: No - Endocrine Hx Renal Disease: No Hx End Stage Renal Disease: No Hx Cirrhosis: No Hx Liver Disease: No Hx Insulin Dependent Diabetes: No Hx Non-Insulin Dependent Diabetes: No Hx Thyroid Disease: No Hx Hypothyroidism: No Hx Hyperthyroidism: No - Hematic Hx Anemia: No Hx Sickle Cell Disease: No - Other Systems Hx Alcohol Use: No Hx Substance Use: No Hx Cancer: No Hx Obesity: No
[2019-07-13] MEDS ORDERED: fentaNYL-BUPIV 2 MCG/ML-0.125% 200 MCG/100 ML BAG EPIDURAL SCH ×2 (04:00→17:00)
[2019-07-13 05:00] LABS: Hematocrit 37.4 % (30.3-42.9); Hemoglobin 12.8 gm/dl (10.1-14.3); Mean Corpuscular HGB Conc 34 % (30-34); Mean Corpuscular Volume 92 fl (79-97); Platelet Count 211 K/mm3 (140-440); Red Blood Count 4.06 M/mm3 (3.65-5.03); Red Cell Distribution Width 13.5 % (13.2-15.2)
--- NOTE | 2019-07-13 05:34 | Event Note ---
Date: 07/13/19 Epidural placement held due to updated labs being completed. Contractions have completely resolved. Pt resting comfortably. Will allow pt to continue to rest until placement of epidural and restart pitocin after it has been placed. At this time pt is sleeping. FHT is cat I also with very rare contractions noted.Will resume IOL with placement of epidural so that AROM with internal monitor placement can take place.
[2019-07-13] MEDS: MAGNESIUM SULFATE 40GM/1000ML 40 GM/1,000 ML BAG IV SCH ×2 (09:34→18:32)
--- NOTE | 2019-07-13 11:50 | Progress Note ---
Assessment and Plan Pt comfortable with epidural SVE 4,100,-2 Internals placed Pit increased per protocol Will re-eval as needed. - Patient Problems (1) Marijuana use Onset Date: ~07/10/19 Current Visit: Yes Status: Acute (2) Pre-eclampsia Onset Date: ~07/10/19 Current Visit: Yes Status: Acute Qualifiers: Trimester: third trimester Qualified Code(s): O14.93 - Unspecified pre- eclampsia, third trimester (3) Proteinuria affecting in third trimester Onset Date: ~07/10/19 Current Visit: Yes Status: Acute Subjective - Subjective Date of service: 07/13/19 (comfortable with epidural) Principal diagnosis: IUP @ 38+4 weeks, IOL for pre-e Interval history: EDC Confirmation: 07/22/2019 Gestational Age: 21 4/7 weeks Past History : 2 Term Births: 0 Premature Births: 0 Living Children: 0 Para: 0 Mult. Births: 0 Prev : 0 Prev. attempt? 0 Aborta: 1 Elect. Ab: 1 Spont. Ab: 0 Ectopics: 0 # 1 Delivery date: 10/2016 Delivery type: EAB Past Medical History: Endometriosis Past Surgical History: negative Past Medical History Anesthesia Complications: negative Anemia: negative Autoimmune Disorder: negative Bleeding Disorder: negative Blood Transfusions: negative Breast Disease: negative Diabetes: negative Heart Disease: negative Hypertension: negative Hepatitis/Liver Disease: negative Kidney Disease/UTI: negative Neurologic/Epilepsy/Migraines: negative Phlebitis/Varicosities: negative Psychiatric: negative Pulmonary Disease/Asthma: negative Thyroid Disease: negative Hospitalizations: negative Surgery (Non-physician gynecologist): negative Abnormal PAP: negative Social Hx: Single no smoking/drugs/ETOH Infection History Hx of STD: none HIV Risk Eval: low risk Hepatitis B Risk Eval: low risk Personal hx. of genital herpes: no Partner hx. of genital herpes: no Rash, Viral, or Febrile illness since last LMP? no Varicella/Chicken Pox Status: Immunized Genetic History Congenital Heart Defect: Mom: no Dad: no Bing Disease: Mom: no Dad: no Thalassemia Mom: no Dad: no Neural Tube Defect Mom: no Dad: no Down's Syndrome Mom: no Dad: no Steven-Sachs Mom: no Dad: no Sickle Cell Disease/Trait Mom: no Dad: no Hemophilia Mom: no Dad: no Muscular Dystrophy Mom: no Dad: no Cystic Fibrosis Mom: no Dad: no Tk Chorea Mom: no Dad: no Mental Retardation Mom: no Dad: no Fragile X Mom: no Dad: no Other Genetic/Chromosomal Disorder Mom: no Dad: no Child w/other defect Mom: no Dad: no Enviromental Exposures Xray Exposure: no Medication, drug, or alcohol use since LMP: no Chemical/Other Exposure: no Exposure to Cat Liter: no Hx of Parvovirus (Fifth Disease): no Active Medications (reviewed today): PNV () Current Allergies (reviewed today): No known allergies Patient reports: movement normal, other (GUPTA resolved), no loss of fluid, no vaginal bleeding, no contractions Objective - Vital Signs Vital Signs: Vital Signs - 12hr 07/12/19 07/12/19 07/13/19 23:51 23:56 00:01 Temperature Pulse Rate 52 L 80 74 Respiratory Rate Blood Pressure O2 Sat by Pulse 96 96 98 Oximetry 07/13/19 07/13/19 07/13/19 00:06 00:11 00:12 Temperature Pulse Rate 72 80 71 Respiratory Rate Blood Pressure 142/78 O2 Sat by Pulse 98 98 Oximetry 07/13/19 07/13/19 07/13/19 00:16 00:21 00:26 Temperature Pulse Rate 68 68 70 Respiratory Rate Blood Pressure O2 Sat by Pulse 100 99 95 Oximetry 07/13/19 07/13/19 07/13/19 00:37 00:38 00:42 Temperature Pulse Rate 55 L 66 Respiratory Rate Blood Pressure 113/59 O2 Sat by Pulse 82 L 91 64 L Oximetry 07/13/19 07/13/19 07/13/19 00:44 00:49 00:53 Temperature Pulse Rate 95 H 64 Respiratory 18 Rate Blood Pressure O2 Sat by Pulse 89 89 Oximetry 07/13/19 07/13/19 07/13/19 00:55 00:57 01:00 Temperature Pulse Rate 64 79 Respiratory Rate Blood Pressure O2 Sat by Pulse 96 79 L 97 Oximetry 07/13/19 07/13/19 07/13/19 01:05 01:10 01:11 Temperature Pulse Rate 79 77 74 Respiratory Rate Blood Pressure 130/74 O2 Sat by Pulse 96 94 Oximetry 07/13/19 07/13/19 07/13/19 01:15 01:20 01:25 Temperature Pulse Rate 76 60 75 Respiratory Rate Blood Pressure O2 Sat by Pulse 98 97 98 Oximetry 07/13/19 07/13/19 07/13/19 01:30 01:35 01:40 Temperature Pulse Rate 75 80 75 Respiratory Rate Blood Pressure O2 Sat by Pulse 97 97 98 Oximetry 07/13/19 07/13/19 07/13/19 01:41 01:45 01:50 Temperature Pulse Rate 75 73 77 Respiratory Rate Blood Pressure 132/63 O2 Sat by Pulse 98 98 Oximetry 07/13/19 07/13/19 07/13/19 01:55 02:00 02:05 Temperature Pulse Rate 74 70 76 Respiratory Rate Blood Pressure O2 Sat by Pulse 97 97 97 Oximetry 07/13/19 07/13/19 07/13/19 02:10 02:12 02:15 Temperature Pulse Rate 76 74 60 Respiratory Rate Blood Pressure 140/66 O2 Sat by Pulse 98 96 Oximetry 07/13/19 07/13/19 07/13/19 02:20 02:25 02:30 Temperature Pulse Rate 80 77 79 Respiratory Rate Blood Pressure O2 Sat by Pulse 97 98 97 Oximetry 07/13/19 07/13/19 07/13/19 02:35 02:40 02:41 Temperature Pulse Rate 79 83 84 Respiratory Rate Blood Pressure 131/75 O2 Sat by Pulse 96 96 Oximetry 07/13/19 07/13/19 07/13/19 02:45 02:50 02:55 Temperature Pulse Rate 83 80 76 Respiratory Rate Blood Pressure O2 Sat by Pulse 96 95 96 Oximetry 07/13/19 07/13/19 07/13/19 03:00 03:05 03:10 Temperature Pulse Rate 76 95 H 85 Respiratory Rate Blood Pressure O2 Sat by Pulse 94 96 99 Oximetry 07/13/19 07/13/19 07/13/19 03:12 03:15 03:20 Temperature Pulse Rate 78 91 H 76 Respiratory Rate Blood Pressure 169/91 O2 Sat by Pulse 99 97 Oximetry 07/13/19 07/13/19 07/13/19 03:25 03:30 03:35 Temperature Pulse Rate 80 80 79 Respiratory Rate Blood Pressure O2 Sat by Pulse 95 94 96 Oximetry 07/13/19 07/13/19 07/13/19 03:40 03:42 03:44 Temperature Pulse Rate 79 73 79 Respiratory Rate Blood Pressure 159/87 O2 Sat by Pulse 98 90 Oximetry 07/13/19 07/13/19 07/13/19 03:45 03:50 03:55 Temperature Pulse Rate 77 85 94 H Respiratory Rate Blood Pressure O2 Sat by Pulse 97 98 99 Oximetry 07/13/19 07/13/19 07/13/19 04:00 04:05 04:10 Temperature Pulse Rate 87 81 86 Respiratory Rate Blood Pressure O2 Sat by Pulse 98 99 99 Oximetry 07/13/19 07/13/19 07/13/19 04:15 04:20 04:25 Temperature Pulse Rate 83 58 L 88 Respiratory Rate Blood Pressure O2 Sat by Pulse 97 98 97 Oximetry 07/13/19 07/13/19 07/13/19 04:30 04:35 04:40 Temperature Pulse Rate 81 83 82 Respiratory Rate Blood Pressure O2 Sat by Pulse 98 97 96 Oximetry 07/13/19 07/13/19 07/13/19 04:45 04:49 04:50 Temperature Pulse Rate 53 L 91 H 101 H Respiratory Rate Blood Pressure 130/83 O2 Sat by Pulse 96 98 Oximetry 07/13/19 07/13/19 07/13/19 04:51 04:55 05:00 Temperature 98.0 F Pulse Rate 86 80 Respiratory 14 Rate Blood Pressure O2 Sat by Pulse 98 95 Oximetry 07/13/19 07/13/19 07/13/19 05:05 05:10 05:12 Temperature Pulse Rate 86 80 81 Respiratory Rate Blood Pressure 132/62 O2 Sat by Pulse 97 97 Oximetry 07/13/19 07/13/19 07/13/19 05:15 05:20 05:25 Temperature Pulse Rate 85 84 79 Respiratory Rate Blood Pressure O2 Sat by Pulse 98 95 95 Oximetry 07/13/19 07/13/19 07/13/19 05:30 05:35 05:40 Temperature Pulse Rate 83 82 77 Respiratory Rate Blood Pressure O2 Sat by Pulse 97 96 96 Oximetry 07/13/19 07/13/19 07/13/19 05:42 05:45 05:50 Temperature Pulse Rate 84 79 82 Respiratory Rate Blood Pressure 115/67 O2 Sat by Pulse 97 97 Oximetry 07/13/19 07/13/19 07/13/19 05:55 06:00 06:05 Temperature Pulse Rate 79 86 80 Respiratory Rate Blood Pressure O2 Sat by Pulse 95 96 97 Oximetry 07/13/19 07/13/19 07/13/19 06:10 06:11 06:15 Temperature Pulse Rate 82 78 78 Respiratory Rate Blood Pressure 123/68 O2 Sat by Pulse 97 97 Oximetry 07/13/19 07/13/19 07/13/19 06:20 06:25 06:30 Temperature Pulse Rate 82 69 72 Respiratory Rate Blood Pressure O2 Sat by Pulse 97 97 97 Oximetry 07/13/19 07/13/19 07/13/19 06:35 06:40 06:41 Temperature Pulse Rate 89 71 73 Respiratory Rate Blood Pressure 140/78 O2 Sat by Pulse 96 96 Oximetry 07/13/19 07/13/19 07/13/19 06:45 06:50 06:55 Temperature Pulse Rate 66 52 L 75 Respiratory Rate Blood Pressure O2 Sat by Pulse 97 92 97 Oximetry 07/13/19 07/13/19 07/13/19 07:00 07:05 07:10 Temperature Pulse Rate 97 H 81 78 Respiratory Rate Blood Pressure O2 Sat by Pulse 99 98 98 Oximetry 07/13/19 07/13/19 07/13/19 07:11 07:15 07:19 Temperature 97.6 F Pulse Rate 72 77 Respiratory Rate Blood Pressure 141/80 O2 Sat by Pulse 98 Oximetry 07/13/19 07/13/19 07/13/19 07:20 07:25 07:28 Temperature Pulse Rate 88 88 81 Respiratory Rate Blood Pressure 140/88 156/91 O2 Sat by Pulse 98 98 Oximetry 07/13/19 07/13/19 07/13/19 07:30 07:35 07:40 Temperature Pulse Rate 89 82 70 Respiratory Rate Blood Pressure O2 Sat by Pulse 100 99 99 Oximetry 07/13/19 07/13/19 07/13/19 07:45 07:50 07:55 Temperature Pulse Rate 72 72 80 Respiratory Rate Blood Pressure 134/74 O2 Sat by Pulse 98 99 98 Oximetry 07/13/19 07/13/19 07/13/19 08:00 08:05 08:10 Temperature Pulse Rate 78 75 87 Respiratory Rate Blood Pressure 144/83 O2 Sat by Pulse 99 99 98 Oximetry 07/13/19 07/13/19 07/13/19 08:15 08:20 08:25 Temperature Pulse Rate 71 74 76 Respiratory Rate Blood Pressure 134/69 O2 Sat by Pulse 98 98 98 Oximetry 07/13/19 07/13/19 07/13/19 08:30 08:35 08:40 Temperature Pulse Rate 74 66 69 Respiratory Rate Blood Pressure 125/76 O2 Sat by Pulse 99 98 98 Oximetry 07/13/19 07/13/19 07/13/19 08:45 08:50 08:55 Temperature Pulse Rate 92 H 69 77 Respiratory Rate Blood Pressure 125/72 O2 Sat by Pulse 97 98 99 Oximetry 07/13/19 07/13/19 07/13/19 09:00 09:05 09:10 Temperature Pulse Rate 79 81 90 Respiratory Rate Blood Pressure 133/78 O2 Sat by Pulse 98 98 99 Oximetry 07/13/19 07/13/19 07/13/19 09:15 09:20 09:25 Temperature Pulse Rate 93 H 112 H 109 H Respiratory Rate Blood Pressure 159/99 O2 Sat by Pulse 100 99 100 Oximetry 07/13/19 07/13/19 07/13/19 09:30 09:35 09:40 Temperature Pulse Rate 129 H 130 H 120 H Respiratory Rate Blood Pressure 93/52 O2 Sat by Pulse 100 100 100 Oximetry 07/13/19 07/13/19 07/13/19 09:42 09:45 09:48 Temperature Pulse Rate 114 H 110 H 99 H Respiratory Rate Blood Pressure 92/52 93/48 79/43 O2 Sat by Pulse 98 Oximetry 07/13/19 07/13/19 07/13/19 09:50 09:52 09:54 Temperature Pulse Rate 94 H 93 H 103 H Respiratory Rate Blood Pressure 80/42 81/46 84/45 O2 Sat by Pulse 98 Oximetry 07/13/19 07/13/19 07/13/19 09:55 09:56 09:58 Temperature Pulse Rate 102 H 100 H 114 H Respiratory Rate Blood Pressure 82/43 87/50 O2 Sat by Pulse 99 Oximetry 07/13/19 07/13/19 07/13/19 10:00 10:02 10:04 Temperature Pulse Rate 99 H 120 H 111 H Respiratory Rate Blood Pressure 91/52 90/51 113/47 O2 Sat by Pulse 98 Oximetry 07/13/19 07/13/19 07/13/19 10:05 10:06 10:08 Temperature Pulse Rate 107 H 106 H 120 H Respiratory Rate Blood Pressure 99/53 97/50 O2 Sat by Pulse 100 Oximetry 07/13/19 07/13/19 07/13/19 10:10 10:12 10:14 Temperature Pulse Rate 129 H 115 H 116 H Respiratory Rate Blood Pressure 104/51 96/50 108/57 O2 Sat by Pulse 100 Oximetry 07/13/19 07/13/19 07/13/19 10:15 10:16 10:18 Temperature Pulse Rate 115 H 112 H 114 H Respiratory Rate Blood Pressure 111/61 114/62 O2 Sat by Pulse 100 Oximetry 07/13/19 07/13/19 07/13/19 10:20 10:21 10:22 Temperature 97.5 F L Pulse Rate 112 H 108 H Respiratory Rate Blood Pressure 121/63 113/55 O2 Sat by Pulse 99 Oximetry 07/13/19 07/13/19 07/13/19 10:25 10:26 10:28 Temperature Pulse Rate 116 H 111 H 97 H Respiratory Rate Blood Pressure 113/58 112/58 O2 Sat by Pulse 99 Oximetry 07/13/19 07/13/19 07/13/19 10:30 10:32 10:34 Temperature Pulse Rate 112 H 121 H 114 H Respiratory Rate Blood Pressure 113/60 105/57 119/56 O2 Sat by Pulse 100 Oximetry 07/13/19 07/13/19 07/13/19 10:35 10:36 10:39 Temperature Pulse Rate 120 H 120 H 110 H Respiratory Rate Blood Pressure 117/59 117/57 O2 Sat by Pulse 100 Oximetry 07/13/19 07/13/19 07/13/19 10:40 10:45 10:50 Temperature Pulse Rate 115 H 125 H 107 H Respiratory Rate Blood Pressure O2 Sat by Pulse 100 100 100 Oximetry 07/13/19 07/13/19 07/13/19 10:55 10:56 10:58 Temperature Pulse Rate 106 H 93 H 88 Respiratory Rate Blood Pressure 102/58 108/55 O2 Sat by Pulse 99 Oximetry 07/13/19 07/13/19 07/13/19 11:00 11:02 11:04 Temperature Pulse Rate 88 96 H 100 H Respiratory Rate Blood Pressure 107/57 109/55 115/57 O2 Sat by Pulse 100 Oximetry 07/13/19 07/13/19 07/13/19 11:05 11:06 11:08 Temperature Pulse Rate 94 H 96 H 90 Respiratory Rate Blood Pressure 112/55 109/55 O2 Sat by Pulse 100 Oximetry 07/13/19 07/13/19 07/13/19 11:10 11:12 11:14 Temperature Pulse Rate 91 H 90 86 Respiratory Rate Blood Pressure 111/55 109/57 111/56 O2 Sat by Pulse 99 Oximetry 07/13/19 07/13/19 07/13/19 11:15 11:16 11:18 Temperature Pulse Rate 70 90 97 H Respiratory Rate Blood Pressure 115/62 115/61 O2 Sat by Pulse 98 Oximetry 07/13/19 07/13/19 07/13/19 11:20 11:22 11:24 Temperature Pulse Rate 83 93 H 85 Respiratory Rate Blood Pressure 107/57 114/60 118/62 O2 Sat by Pulse 97 Oximetry 07/13/19 07/13/19 07/13/19 11:25 11:26 11:28 Temperature Pulse Rate 91 H 86 97 H Respiratory Rate Blood Pressure 111/59 119/63 O2 Sat by Pulse 96 Oximetry 07/13/19 07/13/19 07/13/19 11:30 11:32 11:34 Temperature Pulse Rate 90 87 87 Respiratory Rate Blood Pressure 111/61 110/57 112/61 O2 Sat by Pulse 97 Oximetry 07/13/19 07/13/19 07/13/19 11:35 11:36 11:38 Temperature Pulse Rate 82 88 85 Respiratory Rate Blood Pressure 119/59 104/57 O2 Sat by Pulse 98 Oximetry 07/13/19 07/13/19 07/13/19 11:40 11:42 11:44 Temperature Pulse Rate 90 93 H 96 H Respiratory Rate Blood Pressure 114/73 116/65 115/68 O2 Sat by Pulse 97 Oximetry 07/13/19 07/13/19 11:45 11:46 Temperature Pulse Rate 94 H 92 H Respiratory Rate Blood Pressure 119/65 O2 Sat by Pulse 100 Oximetry - Exam Breasts: deferred Cardiovascular: Regular rate Lungs: Normal air movement Abdomen: Present: normal appearance, soft. Absent: distention, tenderness Uterus: Present: normal FHR: auscultation normal, category 1 Uterine Contraction Monitor Mode: Internal Cervical Dilatation: 4 (clear fluid) Cervical Effacement Percentage: 100 (internals placed) station: -2 Uterine Contraction Pattern: Irregular Uterine Tone Measurement Phase: Resting Uterine Contraction Intensity: Mild Extremities: edema Deep Tendon Reflex Grade: Normal +2 - Labs Labs: Abnormal Labs 07/10/19 07/11/19 07/11/19 18:58 00:43 08:48 Carbon Dioxide 20 L Creatinine 0.6 L Magnesium 4.20 H 5.30 H Albumin 3.1 L 07/11/19 07/11/19 07/12/19 15:21 20:36 04:03 Carbon Dioxide Creatinine Magnesium 5.80 H 5.70 H 5.50 H Albumin 07/12/19 07/13/19 07/13/19 17:32 01:39 05:58 Carbon Dioxide Creatinine Magnesium 5.90 H 6.30 H 6.10 H Albumin Laboratory Results - last 24 hr 07/12/19 07/13/19 07/13/19 17:32 01:39 04:40 WBC 8.6 RBC 4.06 Hgb 12.8 Hct 37.4 MCV 92 MCH 32 MCHC 34 RDW 13.5 Plt Count 211 Magnesium 5.90 H 6.30 H Blood Type Antibody Screen 07/13/19 07/13/19 04:40 05:58 WBC RBC Hgb Hct MCV MCH MCHC RDW Plt Count Magnesium 6.10 H Blood Type A POSITIVE Antibody Screen Negative
--- NOTE | 2019-07-13 15:15 | Progress Note ---
Assessment and Plan Pt resting No c/o voiced BP 140/80 Adequate urine output Cat 1 tracing No cervical chg X 6 hours Will move forward with section Failed induction. Risks damage to surrounding organs, blood transfusion, need for c/s with all future pregnancies. Pt agrees to plan All questions addressed from pt and family. Dr.Youngblood andrews. Orders in EMR Consents signed. Pt will remain on MGSO4 X 24 hours post delivery. - Patient Problems (1) Pre-eclampsia Onset Date: ~07/10/19 Current Visit: Yes Status: Acute Qualifiers: Trimester: third trimester Qualified Code(s): O14.93 - Unspecified pre- eclampsia, third trimester (2) Failed induction of labor Current Visit: Yes Status: Acute (3) Arrest of dilation, delivered, current hospitalization Current Visit: Yes Status: Acute (4) Single live Current Visit: Yes Status: Acute Subjective - Subjective Date of service: 07/13/19 (no cervical chg X 6 hours) Principal diagnosis: IUP @ 38+4 weeks, IOL for pre-e Interval history: EDC Confirmation: 07/22/2019 Gestational Age: 21 4/7 weeks Past History : 2 Term Births: 0 Premature Births: 0 Living Children: 0 Para: 0 Mult. Births: 0 Prev : 0 Prev. attempt? 0 Aborta: 1 Elect. Ab: 1 Spont. Ab: 0 Ectopics: 0 # 1 Delivery date: 10/2016 Delivery type: EAB Past Medical History: Endometriosis Past Surgical History: negative Past Medical History Anesthesia Complications: negative Anemia: negative Autoimmune Disorder: negative Bleeding Disorder: negative Blood Transfusions: negative Breast Disease: negative Diabetes: negative Heart Disease: negative Hypertension: negative Hepatitis/Liver Disease: negative Kidney Disease/UTI: negative Neurologic/Epilepsy/Migraines: negative Phlebitis/Varicosities: negative Psychiatric: negative Pulmonary Disease/Asthma: negative Thyroid Disease: negative Hospitalizations: negative 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 of genital herpes: no Partner hx. of genital herpes: no Rash, Viral, or Febrile illness since last LMP? no Varicella/Chicken Pox Status: Immunized Genetic History Congenital Heart Defect: Mom: no Dad: no Bing Disease: Mom: no Dad: no Thalassemia Mom: no Dad: no Neural Tube Defect Mom: no Dad: no Down's Syndrome Mom: no Dad: no Steven-Sachs Mom: no Dad: no Sickle Cell Disease/Trait Mom: no Dad: no Hemophilia Mom: no Dad: no Muscular Dystrophy Mom: no Dad: no Cystic Fibrosis Mom: no Dad: no [place] Chorea Mom: no Dad: no Mental Retardation Mom: no Dad: no Fragile X Mom: no Dad: no Other Genetic/Chromosomal Disorder Mom: no Dad: no Child w/other defect Mom: no Dad: no Enviromental Exposures Xray Exposure: no Medication, drug, or alcohol use since LMP: no Chemical/Other Exposure: no Exposure to Cat Liter: no Hx of Parvovirus (Fifth Disease): no Active Medications (reviewed today): PNV () Current Allergies (reviewed today): No known allergies Patient reports: movement normal, other (GUPTA resolved), no loss of fluid, no vaginal bleeding, no contractions Objective - Vital Signs Vital Signs: Vital Signs - 12hr 07/13/19 07/13/19 07/13/19 03:10 03:12 03:15 Temperature Pulse Rate 85 78 91 H Respiratory Rate Blood Pressure 169/91 O2 Sat by Pulse 99 99 Oximetry 07/13/19 07/13/19 07/13/19 03:20 03:25 03:30 Temperature Pulse Rate 76 80 80 Respiratory Rate Blood Pressure O2 Sat by Pulse 97 95 94 Oximetry 07/13/19 07/13/19 07/13/19 03:35 03:40 03:42 Temperature Pulse Rate 79 79 73 Respiratory Rate Blood Pressure 159/87 O2 Sat by Pulse 96 98 Oximetry 07/13/19 07/13/19 07/13/19 03:44 03:45 03:50 Temperature Pulse Rate 79 77 85 Respiratory Rate Blood Pressure O2 Sat by Pulse 90 97 98 Oximetry 07/13/19 07/13/19 07/13/19 03:55 04:00 04:05 Temperature Pulse Rate 94 H 87 81 Respiratory Rate Blood Pressure O2 Sat by Pulse 99 98 99 Oximetry 07/13/19 07/13/19 07/13/19 04:10 04:15 04:20 Temperature Pulse Rate 86 83 58 L Respiratory Rate Blood Pressure O2 Sat by Pulse 99 97 98 Oximetry 07/13/19 07/13/19 07/13/19 04:25 04:30 04:35 Temperature Pulse Rate 88 81 83 Respiratory Rate Blood Pressure O2 Sat by Pulse 97 98 97 Oximetry 07/13/19 07/13/19 07/13/19 04:40 04:45 04:49 Temperature Pulse Rate 82 53 L 91 H Respiratory Rate Blood Pressure 130/83 O2 Sat by Pulse 96 96 Oximetry 07/13/19 07/13/19 07/13/19 04:50 04:51 04:55 Temperature 98.0 F Pulse Rate 101 H 86 Respiratory 14 Rate Blood Pressure O2 Sat by Pulse 98 98 Oximetry 07/13/19 07/13/19 07/13/19 05:00 05:05 05:10 Temperature Pulse Rate 80 86 80 Respiratory Rate Blood Pressure O2 Sat by Pulse 95 97 97 Oximetry 07/13/19 07/13/19 07/13/19 05:12 05:15 05:20 Temperature Pulse Rate 81 85 84 Respiratory Rate Blood Pressure 132/62 O2 Sat by Pulse 98 95 Oximetry 07/13/19 07/13/19 07/13/19 05:25 05:30 05:35 Temperature Pulse Rate 79 83 82 Respiratory Rate Blood Pressure O2 Sat by Pulse 95 97 96 Oximetry 07/13/19 07/13/19 07/13/19 05:40 05:42 05:45 Temperature Pulse Rate 77 84 79 Respiratory Rate Blood Pressure 115/67 O2 Sat by Pulse 96 97 Oximetry 07/13/19 07/13/19 07/13/19 05:50 05:55 06:00 Temperature Pulse Rate 82 79 86 Respiratory Rate Blood Pressure O2 Sat by Pulse 97 95 96 Oximetry 07/13/19 07/13/19 07/13/19 06:05 06:10 06:11 Temperature Pulse Rate 80 82 78 Respiratory Rate Blood Pressure 123/68 O2 Sat by Pulse 97 97 Oximetry 07/13/19 07/13/19 07/13/19 06:15 06:20 06:25 Temperature Pulse Rate 78 82 69 Respiratory Rate Blood Pressure O2 Sat by Pulse 97 97 97 Oximetry 07/13/19 07/13/19 07/13/19 06:30 06:35 06:40 Temperature Pulse Rate 72 89 71 Respiratory Rate Blood Pressure O2 Sat by Pulse 97 96 96 Oximetry 07/13/19 07/13/19 07/13/19 06:41 06:45 06:50 Temperature Pulse Rate 73 66 52 L Respiratory Rate Blood Pressure 140/78 O2 Sat by Pulse 97 92 Oximetry 07/13/19 07/13/19 07/13/19 06:55 07:00 07:05 Temperature Pulse Rate 75 97 H 81 Respiratory Rate Blood Pressure O2 Sat by Pulse 97 99 98 Oximetry 07/13/19 07/13/19 07/13/19 07:10 07:11 07:15 Temperature Pulse Rate 78 72 77 Respiratory Rate Blood Pressure 141/80 O2 Sat by Pulse 98 98 Oximetry 07/13/19 07/13/19 07/13/19 07:19 07:20 07:25 Temperature 97.6 F Pulse Rate 88 88 Respiratory Rate Blood Pressure 140/88 O2 Sat by Pulse 98 98 Oximetry 07/13/19 07/13/19 07/13/19 07:28 07:30 07:35 Temperature Pulse Rate 81 89 82 Respiratory Rate Blood Pressure 156/91 O2 Sat by Pulse 100 99 Oximetry 07/13/19 07/13/19 07/13/19 07:40 07:45 07:50 Temperature Pulse Rate 70 72 72 Respiratory Rate Blood Pressure 134/74 O2 Sat by Pulse 99 98 99 Oximetry 07/13/19 07/13/19 07/13/19 07:55 08:00 08:05 Temperature Pulse Rate 80 78 75 Respiratory Rate Blood Pressure 144/83 O2 Sat by Pulse 98 99 99 Oximetry 07/13/19 07/13/19 07/13/19 08:10 08:15 08:20 Temperature Pulse Rate 87 71 74 Respiratory Rate Blood Pressure 134/69 O2 Sat by Pulse 98 98 98 Oximetry 07/13/19 07/13/19 07/13/19 08:25 08:30 08:35 Temperature Pulse Rate 76 74 66 Respiratory Rate Blood Pressure 125/76 O2 Sat by Pulse 98 99 98 Oximetry 07/13/19 07/13/19 07/13/19 08:40 08:45 08:50 Temperature Pulse Rate 69 92 H 69 Respiratory Rate Blood Pressure 125/72 O2 Sat by Pulse 98 97 98 Oximetry 07/13/19 07/13/19 07/13/19 08:55 09:00 09:05 Temperature Pulse Rate 77 79 81 Respiratory Rate Blood Pressure 133/78 O2 Sat by Pulse 99 98 98 Oximetry 07/13/19 07/13/19 07/13/19 09:10 09:15 09:20 Temperature Pulse Rate 90 93 H 112 H Respiratory Rate Blood Pressure 159/99 O2 Sat by Pulse 99 100 99 Oximetry 07/13/19 07/13/19 07/13/19 09:25 09:30 09:35 Temperature Pulse Rate 109 H 129 H 130 H Respiratory Rate Blood Pressure O2 Sat by Pulse 100 100 100 Oximetry 07/13/19 07/13/19 07/13/19 09:40 09:42 09:45 Temperature Pulse Rate 120 H 114 H 110 H Respiratory Rate Blood Pressure 93/52 92/52 93/48 O2 Sat by Pulse 100 98 Oximetry 07/13/19 07/13/19 07/13/19 09:48 09:50 09:52 Temperature Pulse Rate 99 H 94 H 93 H Respiratory Rate Blood Pressure 79/43 80/42 81/46 O2 Sat by Pulse 98 Oximetry 07/13/19 07/13/19 07/13/19 09:54 09:55 09:56 Temperature Pulse Rate 103 H 102 H 100 H Respiratory Rate Blood Pressure 84/45 82/43 O2 Sat by Pulse 99 Oximetry 07/13/19 07/13/19 07/13/19 09:58 10:00 10:02 Temperature Pulse Rate 114 H 99 H 120 H Respiratory Rate Blood Pressure 87/50 91/52 90/51 O2 Sat by Pulse 98 Oximetry 07/13/19 07/13/19 07/13/19 10:04 10:05 10:06 Temperature Pulse Rate 111 H 107 H 106 H Respiratory Rate Blood Pressure 113/47 99/53 O2 Sat by Pulse 100 Oximetry 07/13/19 07/13/19 07/13/19 10:08 10:10 10:12 Temperature Pulse Rate 120 H 129 H 115 H Respiratory Rate Blood Pressure 97/50 104/51 96/50 O2 Sat by Pulse 100 Oximetry 07/13/19 07/13/19 07/13/19 10:14 10:15 10:16 Temperature Pulse Rate 116 H 115 H 112 H Respiratory Rate Blood Pressure 108/57 111/61 O2 Sat by Pulse 100 Oximetry 07/13/19 07/13/19 07/13/19 10:18 10:20 10:21 Temperature 97.5 F L Pulse Rate 114 H 112 H Respiratory Rate Blood Pressure 114/62 121/63 O2 Sat by Pulse 99 Oximetry 07/13/19 07/13/1907/13/19 10:22 10:25 10:26 Temperature Pulse Rate 108 H 116 H 111 H Respiratory Rate Blood Pressure 113/55 113/58 O2 Sat by Pulse 99 Oximetry 07/13/19 07/13/19 07/13/19 10:28 10:30 10:32 Temperature Pulse Rate 97 H 112 H 121 H Respiratory Rate Blood Pressure 112/58 113/60 105/57 O2 Sat by Pulse 100 Oximetry 07/13/19 07/13/19 07/13/19 10:34 10:35 10:36 Temperature Pulse Rate 114 H 120 H 120 H Respiratory Rate Blood Pressure 119/56 117/59 O2 Sat by Pulse 100 Oximetry 07/13/19 07/13/19 07/13/19 10:39 10:40 10:45 Temperature Pulse Rate 110 H 115 H 125 H Respiratory Rate Blood Pressure 117/57 O2 Sat by Pulse 100 100 Oximetry 07/13/19 07/13/19 07/13/19 10:50 10:55 10:56 Temperature Pulse Rate 107 H 106 H 93 H Respiratory Rate Blood Pressure 102/58 O2 Sat by Pulse 100 99 Oximetry 07/13/19 07/13/19 07/13/19 10:58 11:00 11:02 Temperature Pulse Rate 88 88 96 H Respiratory Rate Blood Pressure 108/55 107/57 109/55 O2 Sat by Pulse 100 Oximetry 07/13/19 07/13/19 07/13/19 11:04 11:05 11:06 Temperature Pulse Rate 100 H 94 H 96 H Respiratory Rate Blood Pressure 115/57 112/55 O2 Sat by Pulse 100 Oximetry 07/13/19 07/13/19 07/13/19 11:08 11:10 11:12 Temperature Pulse Rate 90 91 H 90 Respiratory Rate Blood Pressure 109/55 111/55 109/57 O2 Sat by Pulse 99 Oximetry 07/13/19 07/13/19 07/13/19 11:14 11:15 11:16 Temperature Pulse Rate 86 70 90 Respiratory Rate Blood Pressure 111/56 115/62 O2 Sat by Pulse 98 Oximetry 07/13/19 07/13/19 07/13/19 11:18 11:20 11:22 Temperature Pulse Rate 97 H 83 93 H Respiratory Rate Blood Pressure 115/61 107/57 114/60 O2 Sat by Pulse 97 Oximetry 07/13/19 07/13/1907/13/19 11:24 11:25 11:26 Temperature Pulse Rate 85 91 H 86 Respiratory Rate Blood Pressure 118/62 111/59 O2 Sat by Pulse 96 Oximetry 07/13/19 07/13/19 07/13/19 11:28 11:30 11:32 Temperature Pulse Rate 97 H 90 87 Respiratory Rate Blood Pressure 119/63 111/61 110/57 O2 Sat by Pulse 97 Oximetry 07/13/19 07/13/19 07/13/19 11:34 11:35 11:36 Temperature Pulse Rate 87 82 88 Respiratory Rate Blood Pressure 112/61 119/59 O2 Sat by Pulse 98 Oximetry 07/13/19 07/13/19 07/13/19 11:38 11:40 11:42 Temperature Pulse Rate 85 90 93 H Respiratory Rate Blood Pressure 104/57 114/73 116/65 O2 Sat by Pulse 97 Oximetry 07/13/19 07/13/19 07/13/19 11:44 11:45 11:46 Temperature Pulse Rate 96 H 94 H 92 H Respiratory Rate Blood Pressure 115/68 119/65 O2 Sat by Pulse 100 Oximetry 07/13/19 07/13/19 07/13/19 11:48 11:50 11:53 Temperature Pulse Rate 87 94 H 94 H Respiratory Rate Blood Pressure 115/62 110/66 138/81 O2 Sat by Pulse 99 Oximetry 07/13/19 07/13/19 07/13/19 11:55 11:57 11:58 Temperature Pulse Rate 84 96 H 96 H Respiratory Rate Blood Pressure 135/62 142/79 O2 Sat by Pulse 100 Oximetry 07/13/19 07/13/19 07/13/19 12:00 12:02 12:05 Temperature Pulse Rate 98 H 92 H 116 H Respiratory Rate Blood Pressure 125/67 128/68 122/71 O2 Sat by Pulse 99 99 Oximetry 07/13/19 07/13/19 07/13/19 12:08 12:10 12:12 Temperature Pulse Rate 116 H 98 H 96 H Respiratory Rate Blood Pressure 137/93 124/73 122/75 O2 Sat by Pulse 100 Oximetry 07/13/19 07/13/19 07/13/19 12:14 12:15 12:16 Temperature Pulse Rate 104 H 109 H 112 H Respiratory Rate Blood Pressure 126/82 134/84 O2 Sat by Pulse 100 Oximetry 07/13/19 07/13/19 07/13/19 12:18 12:20 12:22 Temperature Pulse Rate 96 H 100 H 91 H Respiratory Rate Blood Pressure 132/81 139/86 138/86 O2 Sat by Pulse 99 Oximetry 07/13/19 07/13/19 07/13/19 12:24 12:25 12:26 Temperature Pulse Rate 95 H 90 96 H Respiratory Rate Blood Pressure 130/79 167/84 O2 Sat by Pulse 99 Oximetry 07/13/19 07/13/19 07/13/19 12:28 12:30 12:32 Temperature 98.0 F Pulse Rate 86 91 H 89 Respiratory Rate Blood Pressure 141/70 134/70 135/73 O2 Sat by Pulse 100 Oximetry 07/13/19 07/13/19 07/13/19 12:34 12:35 12:39 Temperature Pulse Rate 88 92 H 91 H Respiratory Rate Blood Pressure 135/81 127/93 O2 Sat by Pulse 100 Oximetry 07/13/19 07/13/19 07/13/19 12:40 12:42 12:44 Temperature Pulse Rate 89 88 96 H Respiratory Rate Blood Pressure 128/77 134/81 130/84 O2 Sat by Pulse 100 Oximetry 07/13/19 07/13/19 07/13/19 12:45 12:46 12:48 Temperature Pulse Rate 98 H 89 87 Respiratory Rate Blood Pressure 139/66 119/59 O2 Sat by Pulse 100 Oximetry 07/13/19 07/13/19 07/13/19 12:50 12:52 12:54 Temperature Pulse Rate 94 H 90 92 H Respiratory Rate Blood Pressure 118/59 120/61 126/71 O2 Sat by Pulse 100 Oximetry 07/13/19 07/13/19 07/13/19 12:55 12:56 12:58 Temperature Pulse Rate 95 H 86 96 H Respiratory Rate Blood Pressure 127/71 118/65 O2 Sat by Pulse 100 Oximetry 07/13/19 07/13/19 07/13/19 13:00 13:02 13:04 Temperature Pulse Rate 87 90 Respiratory Rate Blood Pressure 131/60 140/61 136/63 O2 Sat by Pulse 100 Oximetry 07/13/19 07/13/19 07/13/19 13:05 13:07 13:10 Temperature Pulse Rate 88 92 H 86 Respiratory Rate Blood Pressure 111/67 115/67 O2 Sat by Pulse 99 99 Oximetry 07/13/19 07/13/19 07/13/19 13:12 13:14 13:15 Temperature Pulse Rate 83 99 H 85 Respiratory Rate Blood Pressure 114/63 119/75 O2 Sat by Pulse 100 Oximetry 07/13/19 07/13/19 07/13/19 13:20 13:21 13:24 Temperature Pulse Rate 93 H 100 H 79 Respiratory Rate Blood Pressure 215/109 147/68 O2 Sat by Pulse 99 Oximetry 07/13/19 07/13/19 07/13/19 13:25 13:26 13:28 Temperature Pulse Rate 75 73 71 Respiratory Rate Blood Pressure 142/83 137/79 O2 Sat by Pulse 100 Oximetry 07/13/19 07/13/19 07/13/19 13:30 13:32 13:34 Temperature Pulse Rate 74 75 69 Respiratory Rate Blood Pressure 139/83 142/83 139/79 O2 Sat by Pulse 100 Oximetry 07/13/19 07/13/19 07/13/19 13:35 13:36 13:38 Temperature Pulse Rate 75 71 72 Respiratory Rate Blood Pressure 139/81 139/84 O2 Sat by Pulse 100 Oximetry 07/13/19 07/13/19 07/13/19 13:40 13:42 13:44 Temperature Pulse Rate 83 80 80 Respiratory Rate Blood Pressure 136/85 144/88 144/93 O2 Sat by Pulse 100 Oximetry 07/13/19 07/13/19 07/13/19 13:45 13:46 13:48 Temperature Pulse Rate 83 80 78 Respiratory Rate Blood Pressure 142/85 133/80 O2 Sat by Pulse 100 Oximetry 07/13/19 07/13/19 07/13/19 13:50 13:52 13:54 Temperature Pulse Rate 80 77 78 Respiratory Rate Blood Pressure 145/85 143/87 146/90 O2 Sat by Pulse 99 Oximetry 07/13/19 07/13/19 07/13/19 13:55 13:56 13:58 Temperature Pulse Rate 80 81 84 Respiratory Rate Blood Pressure 134/84 142/87 O2 Sat by Pulse 100 Oximetry 07/13/19 07/13/19 07/13/19 14:00 14:02 14:04 Temperature Pulse Rate 83 78 83 Respiratory Rate Blood Pressure 148/72 141/77 147/90 O2 Sat by Pulse 100 Oximetry 07/13/19 07/13/19 07/13/19 14:05 14:06 14:08 Temperature Pulse Rate 83 78 83 Respiratory Rate Blood Pressure 132/84 140/89 O2 Sat by Pulse 99 Oximetry 07/13/19 07/13/19 07/13/19 14:10 14:12 14:14 Temperature Pulse Rate 82 82 86 Respiratory Rate Blood Pressure 150/94 144/91 155/92 O2 Sat by Pulse 100 Oximetry 07/13/19 07/13/19 07/13/19 14:15 14:16 14:18 Temperature Pulse Rate 85 101 H 93 H Respiratory Rate Blood Pressure 126/83 153/78 O2 Sat by Pulse 99 Oximetry 07/13/19 07/13/19 07/13/19 14:20 14:22 14:24 Temperature Pulse Rate 86 93 H 88 Respiratory Rate Blood Pressure 133/82 140/83 144/82 O2 Sat by Pulse 99 Oximetry 07/13/19 07/13/19 07/13/19 14:25 14:26 14:28 Temperature Pulse Rate 86 105 H 100 H Respiratory Rate Blood Pressure 141/67 144/74 O2 Sat by Pulse 99 Oximetry 07/13/19 07/13/19 07/13/19 14:30 14:32 14:34 Temperature Pulse Rate 101 H 100 H 97 H Respiratory Rate Blood Pressure 147/78 136/77 142/79 O2 Sat by Pulse 100 Oximetry 07/13/19 07/13/19 07/13/19 14:35 14:36 14:38 Temperature Pulse Rate 99 H 103 H 100 H Respiratory Rate Blood Pressure 142/81 134/82 O2 Sat by Pulse 100 Oximetry 07/13/19 07/13/19 07/13/19 14:40 14:42 14:44 Temperature Pulse Rate 113 H 103 H Respiratory Rate Blood Pressure 147/90 152/101 148/76 O2 Sat by Pulse 99 Oximetry 07/13/19 07/13/19 07/13/19 14:45 14:46 14:50 Temperature Pulse Rate 102 H 96 H 99 H Respiratory Rate Blood Pressure 147/78 O2 Sat by Pulse 99 100 Oximetry 07/13/19 07/13/19 07/13/19 14:55 15:00 15:05 Temperature Pulse Rate 97 H 106 H 105 H Respiratory Rate Blood Pressure O2 Sat by Pulse 100 100 99 Oximetry - Exam Breasts: deferred Cardiovascular: Regular rate Lungs: Normal air movement Abdomen: Present: normal appearance, soft. Absent: distention, tenderness Uterus: Present: normal FHR: auscultation normal, category 1 Uterine Contraction Monitor Mode: Internal Cervical Dilatation: 4 Cervical Effacement Percentage: 100 station: -2 Uterine Contraction Pattern: Regular Uterine Tone Measurement Phase: Resting Uterine Contraction Intensity: Moderate Extremities: normal Deep Tendon Reflex Grade: Normal +2 - Labs Labs: Abnormal Labs 07/10/19 07/11/19 07/11/19 18:58 00:43 08:48 Carbon Dioxide 20 L Creatinine 0.6 L Magnesium 4.20 H 5.30 H Albumin 3.1 L 07/11/19 07/11/19 07/12/19 15:21 20:36 04:03 Carbon Dioxide Creatinine Magnesium 5.80 H 5.70 H 5.50 H Albumin 07/12/19 07/13/19 07/13/19 17:32 01:39 05:58 Carbon Dioxide Creatinine Magnesium 5.90 H 6.30 H 6.10 H Albumin Laboratory Results - last 24 hr 07/12/19 07/13/19 07/13/19 17:32 01:39 04:40 WBC 8.6 RBC 4.06 Hgb 12.8 Hct 37.4 MCV 92 MCH 32 MCHC 34 RDW 13.5 Plt Count 211 Magnesium 5.90 H 6.30 H Blood Type Antibody Screen 07/13/19 07/13/19 04:40 05:58 WBC RBC Hgb Hct MCV MCH MCHC RDW Plt Count Magnesium 6.10 H Blood Type A POSITIVE Antibody Screen Negative
[2019-07-13] MEDS ORDERED: DEXMEDETOMIDINE 200 MCG/2 ML VIAL IV ONE (15:31)
[2019-07-13] MEDS ORDERED: LIDOCAINE 2%/EPINEPHRINE 1:200,000 VIAL (20 ML) INFILTRATI ONE ×2 (15:31→15:33)
[2019-07-13] MEDS ORDERED: ceFAZolin/STERILE WATER 2 GM/20 ML SYRINGE IV ONE (15:55)
[2019-07-13] MEDS ORDERED: BICITRA ORAL LIQD 30ML PO ONE (16:00)
[2019-07-13] MEDS ORDERED: ceFAZolin/Water 2 GM/20 ML 2 GM/20 ML SYRINGE IV NR (16:00)
[2019-07-13] MEDS ORDERED: METOCLOPRAMIDE 10 MG/2 ML INJ IV ONE (16:00)
[2019-07-13] MEDS ORDERED: OXYTOCIN 20 UNIT/1000ML DRIP 20 UNITS/1,000 ML BAG IV SCH (16:00)
[2019-07-13] MEDS ORDERED: FAMOTIDINE 20 MG/2 ML INJ IV ONE (16:00)
[2019-07-13] MEDS ORDERED: KETOROLAC 30 MG/1 ML INJ ONE (16:16)
[2019-07-13] MEDS ORDERED: HYDROmorphone 1 MG/1 ML INJ ONE (16:16)
[2019-07-13] MEDS ORDERED: diphenhydrAMINE 50 MG/ML VIAL ONE (16:16)
[2019-07-13] MEDS ORDERED: OXYTOCIN 10 UNIT/1 ML INJ ONE (16:20)
--- NOTE | 2019-07-13 16:58 | Post Anesthesia Evaluation ---
- Post Anesthesia Evaluation Patient Participated: Yes Airway Patent: Yes Stable Respiratory Function: Yes Nausea/Vomiting: No Temp > 96.8F: Yes Pain Manageable: Yes Adequeate Hydration: Yes Anesthesia Complications: No Block Receding Appropriately: Yes Patient on Ventilator: No
[2019-07-13] MEDS ORDERED: NALOXONE 0.4 MG/1 ML INJ IV PRN (17:00)
[2019-07-13] MEDS ORDERED: HYDROmorphone 1 MG/1 ML INJ IV PRN (17:00)
[2019-07-13] MEDS ORDERED: PROMETHAZINE 25 MG TAB PO PRN (17:00)
[2019-07-13] MEDS ORDERED: PROMETHAZINE 25 MG RECT SUPP PR PRN (17:00)
[2019-07-13] MEDS ORDERED: ONDANSETRON 4 MG/2 ML INJ IV PRN (17:00)
--- NOTE | 2019-07-13 17:23 | Operative Report ---
Operative Report Operative Report: Date of procedure: 07/13/2019 Pre-operative diagnosis: Intrauterine at 38 weeks with preeclampsia, failed labor induction, arrest of dilatation Post-operative diagnosis: Same Procedure name(s): Primary low transverse section Surgeon: Harvey Troncoso MD Steelscope Operator: Millicent Rebolledo, certified nurse box lidder Anesthesia: Epidural EBL: 500 mL Complications: None Findings: Normal uterus tubes and ovaries bilaterally. Female infant weight 4 lbs. 15 oz. 8 at 1 minute and 9 at 5 minutes Specimen(s): None Procedure: The patient was brought to the operating room. Her epidural was dosed was placed without any complications. She was then placed in left lateral tilt. Prepped and draped in the usual sterile manner. After testing for adequate anesthesia level, a Pfannenstiel incision was made. This incision was taken down to the fascia. The fascia was then nicked in the midline. This incision was extended out laterally with Eason scissors. The fascia was then sharply and bluntly from the underlying rectus muscles. The rectus muscles were bluntly and sharply . The peritoneum was then entered with the mash tub cooker operator's fingers. This incision was spread vertically with care not to damage the bladder below. Bladder blade was placed. The bladder flap was then formed sharply and bluntly with Metzenbaum scissors. A transverse incision was made in lower uterine segment. This incision was extended laterally with the operators fingers. The amniotic sac was then entered bluntly with the mash tub cooker operator's fingers. The was delivered from the vertex position. Bulb suction on the mother's abdomen. Cord was double clamped and cut. The was then passed to the nursery personnel who were in attendance. The above scores were given by the nursery personnel. The placenta was then bluntly removed. The uterus was then externalized and wiped clean the remaining products. The uterine incision was closed in layers. The first incision was closed in a locking manner using 0 Vicryl. This was followed by imbricating stitch also w ith 0 Vicryl. This closure was hemostatic. The bladder flap was copiously irrigated and found to be hemostatic. The pelvis was copiously irrigated and found to be hemostatic. The uterus was then placed back to the patient's abdomen. The retractors were removed. The rectus muscles were inspected and found to be hemostatic. The fascia was then closed in a running manner using 0 Vicryl. This incision was hemostatic irrigation Bovie. The skin was reapproximated with 4-0 Vicryl subcuticularly. The patient tolerated procedure well. Her urine was clear. The was admitted to the well baby nursery. The patient was accompanied to recovery room in good condition. Instrument count correct times 3.
[2019-07-13] MEDS: LACTATED RINGERS 1,000 ML IV SCH (18:33)
[2019-07-13] MEDS: HYDROmorphone 1 MG/1 ML INJ IV PRN (22:00)
[2019-07-14] MEDS: HYDROmorphone 1 MG/1 ML INJ IV PRN ×2 (02:04→06:46)
--- NOTE | 2019-07-14 07:16 | Progress Note ---
Assessment and Plan Will plan to transfer pt to M/B @ 1600. Continue pathway Advance diet and activity as tolerated. - Patient Problems (1) Pre-eclampsia Onset Date: ~07/10/19 Current Visit: Yes Status: Acute Qualifiers: Trimester: third trimester Qualified Code(s): O14.93 - Unspecified pre- eclampsia, third trimester Plan to address problem: MGSO4 cont @ 1gm/hr BP 140-130/80-60 Due to stop @ 1600 (2) delivery delivered Onset Date: ~07/13/19 Current Visit: Yes Status: Acute Plan to address problem: Pt has been awake most of the evening and night Has been getting medicated for pain frequently Will continue to work with pt for pain control , IS Q1hr. Continue c/s pathway Adv diet as tolerated Subjective - Subjective Date of service: 07/14/19 (sleeping) Principal diagnosis: Day#1 s/p c/s; PreE on MGSO4 Interval history: EDC Confirmation: 07/22/2019 Gestational Age: 21 4/7 weeks Past History : 2 Term Births: 0 Premature Births: 0 Living Children: 0 Para: 0 Mult. Births: 0 Prev : 0 Prev. attempt? 0 Aborta: 1 Elect. Ab: 1 Spont. Ab: 0 Ectopics: 0 # 1 Delivery date: 10/2016 Delivery type: EAB Past Medical History: Endometriosis Past Surgical History: negative Past Medical History Anesthesia Complications: negative Anemia: negative Autoimmune Disorder: negative Bleeding Disorder: negative Blood Transfusions: negative Breast Disease: negative Diabetes: negative Heart Disease: negative Hypertension: negative Hepatitis/Liver Disease: negative Kidney Disease/UTI: negative Neurologic/Epilepsy/Migraines: negative Phlebitis/Varicosities: negative Psychiatric: negative Pulmonary Disease/Asthma: negative Thyroid Disease: negative Hospitalizations: negative Surgery (Non-steam conditioner filling): negative Abnormal PAP: negative Social Hx: Single no smoking/drugs/ETOH Infection History Hx of STD: none HIV Risk Eval: low risk Hepatitis B Risk Eval: low risk Personal hx. of genital herpes: no Partner hx. of genital herpes: no Rash, Viral, or Febrile illness since last LMP? no Varicella/Chicken Pox Status: Immunized Genetic History Congenital Heart Defect: Mom: no Dad: no Bing Disease: Mom: no Dad: no Thalassemia Mom: no Dad: no Neural Tube Defect Mom: no Dad: no Down's Syndrome Mom: no Dad: no Steven-Sachs Mom: no Dad: no Sickle Cell Disease/Trait Mom: no Dad: no Hemophilia Mom: no Dad: no Muscular Dystrophy Mom: no Dad: no Cystic Fibrosis Mom: no Dad: no [place] Chorea Mom: no Dad: no Mental Retardation Mom: no Dad: no Fragile X Mom: no Dad: no Other Genetic/Chromosomal Disorder Mom: no Dad: no Child w/other defect Mom: no Dad: no Enviromental Exposures Xray Exposure: no Medication, drug, or alcohol use since LMP: no Chemical/Other Exposure: no Exposure to Cat Liter: no Hx of Parvovirus (Fifth Disease): no Active Medications (reviewed today): PNV () Current Allergies (reviewed today): No known allergies Patient reports: voiding normally (BSB Adequate urine output 2,000 X 12 hours) [place]: doing well Objective - Vital Signs Latest vital signs: Vital Signs Temp Pulse Resp BP Pulse Ox 07/14/19 06:46 14 07/14/19 06:17 73 137/85 07/14/19 01:33 74 150/73 07/13/19 21:35 75 142/67 07/13/19 21:28 75 142/80 07/13/19 21:05 78 138/78 07/13/19 20:30 98.8 F 14 07/13/19 17:50 98.9 F 94 H 16 117/67 98 07/13/19 17:45 89 17 118/69 98 07/13/19 17:40 89 16 122/73 98 07/13/19 17:35 88 15 123/65 98 07/13/19 17:20 98 H 15 118/58 98 07/13/19 17:05 96 H 15 124/67 96 07/13/19 17:00 92 H 14 117/61 96 07/13/19 16:55 107 H 16 116/64 94 07/13/19 16:50 98.7 F 109 H 17 111/55 97 07/13/19 15:45 108 H 99 07/13/19 15:40 106 H 99 07/13/19 15:35 102 H 98 07/13/19 15:32 111 H 137/77 07/13/19 15:30 104 H 99 07/13/19 15:25 103 H 99 07/13/19 15:20 120 H 99 07/13/19 15:15 118 H 99 07/13/19 15:10 105 H 99 07/13/19 15:05 105 H 99 07/13/19 15:00 106 H 100 07/13/19 14:55 97 H 100 07/13/19 14:50 99 H 100 07/13/19 14:46 96 H 147/78 07/13/19 14:45 102 H 99 07/13/19 14:44 103 H 148/76 07/13/19 14:42 152/101 07/13/19 14:40 113 H 147/90 99 07/13/19 14:38 100 H 134/82 07/13/19 14:36 103 H 142/81 07/13/19 14:35 99 H 100 07/13/19 14:34 97 H 142/79 07/13/19 14:32 100 H 136/77 07/13/19 14:30 101 H 147/78 100 07/13/19 14:28 100 H 144/74 07/13/19 14:26 105 H 141/67 07/13/19 14:25 86 99 07/13/19 14:24 88 144/82 07/13/19 14:22 93 H 140/83 07/13/19 14:20 86 133/82 99 07/13/19 14:18 93 H 153/78 07/13/19 14:16 101 H 126/83 07/13/19 14:15 85 99 07/13/19 14:14 86 155/92 07/13/19 14:12 82 144/91 07/13/19 14:10 82 150/94 100 07/13/19 14:08 83 140/89 07/13/19 14:06 78 132/84 07/13/19 14:05 83 99 07/13/19 14:04 83 147/90 07/13/19 14:02 78 141/77 07/13/19 14:00 83 148/72 100 07/13/19 13:58 84 142/87 07/13/19 13:56 81 134/84 07/13/19 13:55 80 100 07/13/19 13:54 78 146/90 07/13/19 13:52 77 143/87 07/13/19 13:50 80 145/85 99 07/13/19 13:48 78 133/80 07/13/19 13:46 80 142/85 07/13/19 13:45 83 100 07/13/19 13:44 80 144/93 07/13/19 13:42 80 144/88 07/13/19 13:40 83 136/85 100 07/13/19 13:38 72 139/84 07/13/19 13:36 71 139/81 07/13/19 13:35 75 100 07/13/19 13:34 69 139/79 07/13/19 13:32 75 142/83 07/13/19 13:30 74 139/83 100 07/13/19 13:28 71 137/79 07/13/19 13:26 73 142/83 07/13/19 13:25 75 100 07/13/19 13:24 79 147/68 07/13/19 13:21 100 H 215/109 07/13/19 13:20 93 H 99 07/13/19 13:15 85 100 07/13/19 13:14 99 H 119/75 07/13/19 13:12 83 114/63 07/13/19 13:10 86 115/67 99 07/13/19 13:07 92 H 111/67 07/13/19 13:05 88 99 07/13/19 13:04 136/63 07/13/19 13:02 90 140/61 07/13/19 13:00 87 131/60 100 07/13/19 12:58 96 H 118/65 07/13/19 12:56 86 127/71 07/13/19 12:55 95 H 100 07/13/19 12:54 92 H 126/71 07/13/19 12:52 90 120/61 07/13/19 12:50 94 H 118/59 100 07/13/19 12:48 87 119/59 07/13/19 12:46 89 139/66 07/13/19 12:45 98 H 100 07/13/19 12:44 96 H 130/84 07/13/19 12:42 88 134/81 07/13/19 12:40 89 128/77 100 07/13/19 12:39 91 H 127/93 07/13/19 12:35 92 H 100 07/13/19 12:34 88 135/81 07/13/19 12:32 89 135/73 07/13/19 12:30 98.0 F 91 H 134/70 100 07/13/19 12:28 86 141/70 07/13/19 12:26 96 H 167/84 07/13/19 12:25 90 99 07/13/19 12:24 95 H 130/79 07/13/19 12:22 91 H 138/86 07/13/19 12:20 100 H 139/86 99 07/13/19 12:18 96 H 132/81 07/13/19 12:16 112 H 134/84 07/13/19 12:15 109 H 100 07/13/19 12:14 104 H 126/82 07/13/19 12:12 96 H 122/75 07/13/19 12:10 98 H 124/73 100 07/13/19 12:08 116 H 137/93 07/13/19 12:05 116 H 122/71 99 07/13/19 12:02 92 H 128/68 07/13/19 12:00 98 H 125/67 99 07/13/19 11:58 96 H 142/79 07/13/19 11:57 96 H 135/62 07/13/19 11:55 84 100 07/13/19 11:53 94 H 138/81 07/13/19 11:50 94 H 110/66 99 07/13/19 11:48 87 115/62 07/13/19 11:46 92 H 119/65 07/13/19 11:45 94 H 100 07/13/19 11:44 96 H 115/68 07/13/19 11:42 93 H 116/65 07/13/19 11:40 90 114/73 97 07/13/19 11:38 85 104/57 07/13/19 11:36 88 119/59 07/13/19 11:35 82 98 07/13/19 11:34 87 112/61 07/13/19 11:32 87 110/57 07/13/19 11:30 90 111/61 97 07/13/19 11:28 97 H 119/63 07/13/19 11:26 86 111/59 07/13/19 11:25 91 H 96 07/13/19 11:24 85 118/62 07/13/19 11:22 93 H 114/60 07/13/19 11:20 83 107/57 97 07/13/19 11:18 97 H 115/61 07/13/19 11:16 90 115/62 07/13/19 11:15 70 98 07/13/19 11:14 86 111/56 07/13/19 11:12 90 109/57 07/13/19 11:10 91 H 111/55 99 07/13/19 11:08 90 109/55 07/13/19 11:06 96 H 112/55 07/13/19 11:05 94 H 100 07/13/19 11:04 100 H 115/57 07/13/19 11:02 96 H 109/55 07/13/19 11:00 88 107/57 100 07/13/19 10:58 88 108/55 07/13/19 10:56 93 H 102/58 07/13/19 10:55 106 H 99 07/13/19 10:50 107 H 100 07/13/19 10:45 125 H 100 07/13/19 10:40 115 H 100 07/13/19 10:39 110 H 117/57 07/13/19 10:36 120 H 117/59 07/13/19 10:35 120 H 100 07/13/19 10:34 114 H 119/56 07/13/19 10:32 121 H 105/57 07/13/19 10:30 112 H 113/60 100 07/13/19 10:28 97 H 112/58 07/13/19 10:26 111 H 113/58 07/13/19 10:25 116 H 99 07/13/19 10:22 108 H 113/55 07/13/19 10:21 97.5 F L 07/13/19 10:20 112 H 121/63 99 07/13/19 10:18 114 H 114/62 07/13/19 10:16 112 H 111/61 07/13/19 10:15 115 H 100 07/13/19 10:14 116 H 108/57 07/13/19 10:12 115 H 96/50 07/13/19 10:10 129 H 104/51 100 07/13/19 10:08 120 H 97/50 07/13/19 10:06 106 H 99/53 07/13/19 10:05 107 H 100 07/13/19 10:04 111 H 113/47 07/13/19 10:02 120 H 90/51 07/13/19 10:00 99 H 91/52 98 07/13/19 09:58 114 H 87/50 07/13/19 09:56 100 H 82/43 07/13/19 09:55 102 H 99 07/13/19 09:54 103 H 84/45 07/13/19 09:52 93 H 81/46 07/13/19 09:50 94 H 80/42 98 07/13/19 09:48 99 H 79/43 07/13/19 09:45 110 H 93/48 98 07/13/19 09:42 114 H 92/52 07/13/19 09:40 120 H 93/52 100 07/13/19 09:35 130 H 100 07/13/19 09:30 129 H 100 07/13/19 09:25 109 H 100 07/13/19 09:20 112 H 99 07/13/19 09:15 93 H 159/99 100 07/13/19 09:10 90 99 07/13/19 09:05 81 98 07/13/19 09:00 79 133/78 98 07/13/19 08:55 77 99 07/13/19 08:50 69 98 07/13/19 08:45 92 H 125/72 97 07/13/19 08:40 69 98 07/13/19 08:35 66 98 07/13/19 08:30 74 125/76 99 07/13/19 08:25 76 98 07/13/19 08:20 74 98 07/13/19 08:15 71 134/69 98 07/13/19 08:10 87 98 07/13/19 08:05 75 99 07/13/19 08:00 78 144/83 99 07/13/19 07:55 80 98 07/13/19 07:50 72 99 07/13/19 07:45 72 134/74 98 07/13/19 07:40 70 99 07/13/19 07:35 82 99 07/13/19 07:30 89 100 07/13/19 07:28 81 156/91 07/13/19 07:25 88 140/88 98 07/13/19 07:20 88 98 07/13/19 07:19 97.6 F 07/13/19 07:15 77 98 Intake and Output 07/13/19 07/14/19 07/14/19 22:59 06:59 14:59 Intake Total 2064.268 2571 Output Total 550 2000 Balance 1298.333 -1000 Intake: IV 6385.694 3267 MAGNESIUM SULFATE 40GM/ 448.333 1000ML 40 gm In 1,000 ml @ 2 GM/HR 50 mls/hr IV DIRECT HUMPHREY Rx#:[id number] PITOCin/NS 20 UNIT/1000ML 1000 DRIP 20 units In 1,000 ml @ 125 mls/hr IV DIRECT HUMPHREY Rx#:[id number] Output: Urine 550 2000 Indwelling Catheter 2000 Uretheral (Harris) 200 Other: Total, Output Amount 2000 Estimated Blood Loss 300 - Exam Breasts: Present: normal Cardiovascular: Present: Regular rate Lungs: Present: Normal air movement Abdomen: Present: normal appearance, soft Uterus: Present: normal, fundal height below umbilicus Extremities: Present: normal (SCDs on) Deep Tendon Reflex Grade: Normal +2 Incision: Present: normal, dry, intact - Labs Labs: Abnormal lab results 07/13/19 07/13/19 07/13/19 Range/Units 05:58 14:58 18:56 Magnesium 6.10 H 5.40 H 4.50 H (1.7-2.3) mg/dL 07/14/19 07/14/19 Range/Units 00:25 05:29 Magnesium 4.20 H 4.20 H (1.7-2.3) mg/dL
[2019-07-14] MEDS ORDERED: hydrALAZINE 20 MG/1 ML INJ IV ONE (10:45)
--- NOTE | 2019-07-14 10:55 | Event Note ---
Date: 07/14/19 (BP 184/104) Apresoline 10mg IV now then will start Labetalol 200mg po BID closely monitor BPs aware
[2019-07-14] MEDS ORDERED: HYDROcodone/ACETAMINOPHEN 5-325 MG TAB PO PRN (11:11)
[2019-07-14] MEDS ORDERED: HYDROmorphone 1 MG/1 ML INJ IV ONE (12:00)
[2019-07-14] MEDS ORDERED: IBUPROFEN 800 MG TAB PO SCH (12:00)
[2019-07-14 12:10] LABS: Hemoglobin 11.9 gm/dl (10.1-14.3)
[2019-07-14] MEDS ORDERED: SIMETHICONE 80 MG CHEW TAB PO PRN (15:56)
[2019-07-14] MEDS ORDERED: MAGNESIUM HYDROXIDE (MOM) ORAL LIQD UDC PO PRN (15:56)
[2019-07-14] MEDS: LABETALOL 200 MG TAB PO SCH (15:57)
[2019-07-14] MEDS ORDERED: NALOXONE 0.4 MG/1 ML INJ IV PRN (17:21)
[2019-07-14] MEDS ORDERED: WITCH HAZEL/ GLYCERIN PAD TP PRN (17:21)
[2019-07-14] MEDS ORDERED: LANOLIN/ZINC/DIMETHICONE (LANSINOH) 7 GM TP PRN (17:21)
[2019-07-14] MEDS ORDERED: ONDANSETRON 4 MG/2 ML INJ IV PRN (17:21)
[2019-07-14] MEDS ORDERED: KETOROLAC 30 MG/1 ML INJ IV SCH (18:00)
[2019-07-14] MEDS ORDERED: MAGNESIUM SULFATE 40GM/1000ML 40 GM/1,000 ML BAG IV SCH (18:00)
[2019-07-14] MEDS ORDERED: OXYTOCIN 20 UNIT/1000ML DRIP 20 UNITS/1,000 ML BAG IV SCH (18:00)
[2019-07-14] MEDS ORDERED: D5W/LACTATED RINGERS 1,000 ML IV SCH (18:00)
[2019-07-14] MEDS: ceFAZolin/NS 1 GM/50 ML 1 GM/50 ML BAG IV SCH (20:38)
[2019-07-14] MEDS: FERROUS SULFATE 325 MG TAB PO SCH (20:43)
[2019-07-14 21:18] LABS: Hematocrit 34.3 % (30.3-42.9); Hemoglobin 11.4 gm/dl (10.1-14.3)
[2019-07-14] MEDS: IBUPROFEN 800 MG TAB PO PRN (21:33)
[2019-07-15] MEDS: IBUPROFEN 800 MG TAB PO PRN (03:59)
[2019-07-15] MEDS: LABETALOL 200 MG TAB PO SCH ×2 (04:01→21:47)
--- NOTE | 2019-07-15 05:51 | Progress Note ---
Assessment and Plan Pt in good spirits s/p section H&H stable No s/sx of anemia. Doing well s/p c/s and PreE P: continue pathway Advance diet and activity as tolerated. Pt is aware she will be d/c on Labetalol. All questions addressed. - Patient Problems (1) Pre-eclampsia Onset Date: ~07/10/19 Current Visit: Yes Status: Acute Qualifiers: Trimester: third trimester Qualified Code(s): O14.93 - Unspecified pre- eclampsia, third trimester Plan to address problem: MGSO4 completed. Pt now on Labetalol 200mg po BID BP 140-130/80 (2) delivery delivered Onset Date: ~07/13/19 Current Visit: Yes Status: Acute Plan to address problem: Pt w/o complaint Has managed pain on Motrin since transfer to . Incision D&I. Encouraged to ambulate today. Subjective - Subjective Date of service: 07/15/19 (no c/o voiced) Principal diagnosis: Day#2 s/p c/s; PreE; Labetalol 200mg BID Interval history: EDC Confirmation: 07/22/2019 Gestational Age: 21 4/7 weeks Past History : 2 Term Births: 0 Premature Births: 0 Living Children: 0 Para: 0 Mult. Births: 0 Prev : 0 Prev. attempt? 0 Aborta: 1 Elect. Ab: 1 Spont. Ab: 0 Ectopics: 0 # 1 Delivery date: 10/2016 Delivery type: EAB Past Medical History: Endometriosis Past Surgical History: negative Past Medical History Anesthesia Complications: negative Anemia: negative Autoimmune Disorder: negative Bleeding Disorder: negative Blood Transfusions: negative Breast Disease: negative Diabetes: negative Heart Disease: negative Hypertension: negative Hepatitis/Liver Disease: negative Kidney Disease/UTI: negative Neurologic/Epilepsy/Migraines: negative Phlebitis/Varicosities: negative Psychiatric: negative Pulmonary Disease/Asthma: negative Thyroid Disease: negative Hospitalizations: negative Surgery (Non-vulcan crewmember): negative Abnormal PAP: negative Social Hx: Single no smoking/drugs/ETOH Infection History Hx of STD: none HIV Risk Eval: low risk Hepatitis B Risk Eval: low risk Personal hx. of genital herpes: no Partner hx. of genital herpes: no Rash, Viral, or Febrile illness since last LMP? no Varicella/Chicken Pox Status: Immunized Genetic History Congenital Heart Defect: Mom: no Dad: no Bing Disease: Mom: no Dad: no Thalassemia Mom: no Dad: no Neural Tube Defect Mom: no Dad: no Down's Syndrome Mom: no Dad: no Steven-Sachs Mom: no Dad: no Sickle Cell Disease/Trait Mom: no Dad: no Hemophilia Mom: no Dad: no Muscular Dystrophy Mom: no Dad: no Cystic Fibrosis Mom: no Dad: no [place] Chorea Mom: no Dad: no Mental Retardation Mom: no Dad: no Fragile X Mom: no Dad: no Other Genetic/Chromosomal Disorder Mom: no Dad: no Child w/other defect Mom: no Dad: no Enviromental Exposures Xray Exposure: no Medication, drug, or alcohol use since LMP: no Chemical/Other Exposure: no Exposure to Cat Liter: no Hx of Parvovirus (Fifth Disease): no Active Medications (reviewed today): PNV () Current Allergies (reviewed today): No known allergies Patient reports: appetite normal, voiding normally, pain well controlled, ambulating normally : doing well Objective - Vital Signs Latest vital signs: Vital Signs Temp Pulse Resp BP BP Pulse Ox 07/15/19 04:01 71 147/87 07/15/19 03:59 18 07/14/19 23:40 97.9 F 79 18 125/85 93 07/14/19 21:33 20 07/14/19 20:45 99.1 F 74 20 130/83 98 07/14/19 17:34 98.7 F 82 20 126/64 07/14/19 16:19 75 134/73 07/14/19 16:09 89 155/93 07/14/19 15:59 86 146/91 07/14/19 15:58 81 139/85 07/14/19 15:57 81 139/85 07/14/19 15:33 18 07/14/19 15:29 82 142/83 07/14/19 15:19 78 144/80 07/14/19 15:09 82 146/85 07/14/19 15:05 82 149/91 07/14/19 14:59 74 145/86 07/14/19 14:49 85 146/79 07/14/19 14:48 88 95 07/14/19 14:42 85 97 07/14/19 14:39 79 113/61 07/14/19 14:37 84 96 07/14/19 14:32 88 95 07/14/19 14:29 84 139/77 94 07/14/19 14:27 80 97 07/14/19 14:22 94 H 96 07/14/19 14:19 84 126/70 07/14/19 14:17 82 96 07/14/19 14:12 91 H 97 07/14/19 14:09 86 128/68 07/14/19 14:07 92 H 96 07/14/19 14:00 79 96 07/14/19 13:59 82 126/71 07/14/19 13:55 80 95 07/14/19 13:50 91 H 96 07/14/19 13:49 83 130/67 92 07/14/19 13:45 87 95 07/14/19 13:42 105 H 94 07/14/19 13:40 89 95 07/14/19 13:39 92 H 128/74 07/14/19 13:36 85 94 07/14/19 13:35 86 96 07/14/19 13:30 82 96 07/14/19 13:29 81 122/69 07/14/19 13:25 80 95 07/14/19 13:20 82 96 07/14/19 13:19 76 130/75 07/14/19 13:15 87 96 07/14/19 13:10 84 96 07/14/19 13:09 82 131/89 94 07/14/19 13:05 90 95 07/14/19 13:00 81 96 07/14/19 12:59 85 119/61 07/14/19 12:55 86 96 07/14/19 12:50 81 96 07/14/19 12:49 86 127/63 07/14/19 12:45 83 96 07/14/19 12:40 86 97 07/14/19 12:39 83 123/62 07/14/19 12:35 84 96 07/14/19 12:30 91 H 96 07/14/19 12:29 90 121/58 93 07/14/19 12:25 95 H 96 07/14/19 12:20 100 H 96 07/14/19 12:19 88 121/69 94 07/14/19 12:15 85 95 07/14/19 12:10 86 95 07/14/19 12:08 83 119/70 07/14/19 11:39 90 176/97 07/14/19 11:08 77 138/83 07/14/19 11:05 18 07/14/19 11:00 83 184/104 07/14/19 10:37 84 184/104 07/14/19 08:46 98.0 F 83 18 147/86 07/14/19 08:42 83 147/86 07/14/19 06:46 14 07/14/19 06:17 73 137/85 Intake and Output 07/14/19 07/14/19 07/15/19 14:59 22:59 06:59 Output Total 1800 650 Balance -1800 -650 Output: Urine 1800 650 Indwelling Catheter 1600 650 Uretheral (Harris) 200 Other: Total, Output Amount 300 300 # Voids Indwelling Catheter 1 1 - Exam Breasts: Present: normal Cardiovascular: Present: Regular rate Lungs: Present: Normal air movement Abdomen: Present: normal appearance, soft, normal bowel sounds Uterus: Present: normal, fundal height below umbilicus Extremities: Present: normal Deep Tendon Reflex Grade: Normal +2 Incision: Present: normal, dry, intact - Labs Labs: Abnormal lab results 07/14/19 07/14/19 Range/Units 05:29 11:34 Magnesium 4.20 H 3.80 H (1.7-2.3) mg/dL
[2019-07-15] MEDS: ceFAZolin/NS 1 GM/50 ML 1 GM/50 ML BAG IV SCH (06:00)
[2019-07-15] MEDS: PRENATAL VIT27-FE FUMARATE-FOLIC ACID VIT TAB PO SCH (10:29)
[2019-07-15] MEDS: FERROUS SULFATE 325 MG TAB PO SCH (10:30)
[2019-07-15] MEDS: HYDROcodone/ACETAMINOPHEN 5-325 MG TAB PO PRN ×2 (13:05→18:58)
[2019-07-16] MEDS: IBUPROFEN 800 MG TAB PO PRN ×2 (00:16→06:10)
--- NOTE | 2019-07-16 07:02 | Discharge Summary ---
Providers - Providers Date of Admission: 07/10/19 18:34 Date of discharge: 07/16/19 (pt desires d/c) Attending physician: RONALDO GOMEZ 07/14/19 17:21 Consult to Case Management [CONS] Routine Services Needed at Discharge: Logistics Project Manager Notified:: yes Phone number called:: [phone] Time called:: 09:07 Consult to Jig And Fixture Builder Apprentice [CONS] Routine Reason For Exam: Primary care physician: RONALDO GOMEZ Hospitalization Reason for admission: induction of labor Delivery: Procedure: primary low transverse Episiotomy: none Laceration: none Incision: normal, dry, intact complications: none Discharge diagnosis: IUP at term delivered baby: female Hospital course: failed IOL Uncomplicated primary section PreE d/c home on Labetalol Received MGSO4 in labor and 24hr PP Pt resting Req d/c this AM. BP 150-140/90-70 Afebrile FF below umb Lochia scant Incision D&I No s/sx of anemia Doing well s/p c/s and PreE P: d/c today with instructions RTO Monday for incision check and BP check. RX provided @ d/c Disposition: DC-30 STILL A PATIENT - Discharge Diagnoses (1) Pre-eclampsia Status: Acute Qualifiers: Trimester: third trimester Qualified Code(s): O14.93 - Unspecified pre- eclampsia, third trimester Comment: Continue Labetalol 200mg BID RTO Monday for BP check (2) delivery delivered Status: Acute Comment: RTO 1 week postop check Plan - Discharge Medications Prescriptions: Ferrous Sulfate [Feosol 325 MG tab] 325 mg PO BID #60 tablet Ibuprofen [Motrin 800 MG tab] 800 mg PO Q6H PRN #30 tablet PRN Reason: Pain oxyCODONE /ACETAMINOPHEN [Percocet 5/325 mg] 1 - 2 tab PO Q4H PRN #30 tablet PRN Reason: Pain, Moderate - Provider Discharge Summary Activity: routine, no sex for 6 weeks, no heavy lifting 4 weeks, no strenuous exercise Diet: other (NO SALT) Instructions: routine Additional instructions: [] Smoking cessation referral if applicable(refer to patient education folder for contact #) [] Refer to [facility] Booklet Call your doctor immediately for: * Fever > 100.5 * Heavy vaginal bleeding ( >1 pad per hour) * Severe persistent headache * Shortness of breath * Reddened, hot, painful area to leg or breast * Drainage or odor from incision. * Keep incision clean and dry at all times and follow doctor's instructions regarding bathing/showering - Follow up plan Follow up: RONALDO GOMEZ MD [Primary Care Provider] - 7 Days (Congratulations! Please call [phone] to schedule your follow up for Monday07-19-19 for blood pressure check and incision check. Take medications as prescribed. Call with headache, blurred vision, chest pain. Call with any concerns.)
[2019-07-16] MEDS: HYDROcodone/ACETAMINOPHEN 5-325 MG TAB PO PRN (08:40)
[2019-07-16] MEDS: FERROUS SULFATE 325 MG TAB PO SCH (11:51)
[2019-07-16] MEDS: PRENATAL VIT27-FE FUMARATE-FOLIC ACID VIT TAB PO SCH (11:53)
[2019-07-16] MEDS: LABETALOL 200 MG TAB PO SCH (11:53)
[2019-07-16 12:56] VITALS: BP 134/73
== END 2019-07-16 11:45 | disposition home or self-care (01) | DRG 787 ==
LOC: TRG 18:26 → LD 18:27 → TRG 18:33 → LD 18:34 → OB 07-14 16:45
PROVIDERS: ADMIT Obstetrics & Gynecology; ATTEND Obstetrics & Gynecology
PROC: 10D00Z1 Extraction of Products of Conception, Low, Open Approach (ICD-10-PCS; principal; 2019-07-13)
DX: O62.1 Secondary uterine inertia (principal); O99.324 Drug use complicating childbirth; O61.9 Failed induction of labor, unspecified; Z3A.38 38 weeks gestation of pregnancy; Z37.0 Single live birth; F15.90 Other stimulant use, unspecified, uncomplicated; O14.94 Unspecified pre-eclampsia, complicating childbirth
CPT/HCPCS: 36415; 59200; 80048; 80076; 80307; 81001; 82565; 83735; 84550; 85014; 85018; 85027; 85610; 85730; 86592; 86850; 86900; 86901; G0378; A6250; J0360; J0690; J1170; J1200; J1885; J2590; J2765; J3010; J3475; J3490; J7120